=== PATIENT | male | born 1990 ===

== ENCOUNTER 2025-02-14 22:57 | Inpatient (IN) | payer MEDICARE, SELFPAY ==
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
--- OUTSIDE RECORDS SUMMARY | 2025-01-12 06:00 | XMS_ITS | Continuity of Care Document ---
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 Name Role Phone Souleymane Leonard MD Unavailable Unavailabl e Procedures Procedure Date OFFICE/OUTPATIENT VISIT, [facility] Advance Directives Directive Yes / No Effective Date File Name No Information Encounters Encounter Description Practice Location Reason(s) For Visit Diagnoses Date Provider Providers Copied on Encounter OFFICE/OUTPA TIENT VISIT, [facility], [address] [place], [place], [id number] , [place] tel:[phone] [facility] Neck Pain (chief complaint) CervicalgiaInjury of cervical spinal cord, sequelaLong term (current) use of opiate analgesic Aisha Comer. [address], [address], [place], [place], [address], [place]. tel:[phone] Referring Provider: Esteban Neri, [address] [place], [address] . tel:[phone] Family History Family Member Type Diagnosis Age At Onset No Information Payers Payer name Insurance type Covered republican ID Efrem weiss(s) [facility] [id number] Social History Type Description Quantity Date Captured [...] Of Treatment Date Type Action Status Goal Medication Reconciliation. D ue on due Goal Weight. Due on d ue Goal PHQ-9. Due on du e Goal Review Allergy List. Due on due Goal Unhealthy drug use screening . Due on due Goal Tobacco Use. Due on due Goal Update Social History. Due o n due Goal Tobacco screening. Due on due Goal Height. Due on d ue Goal Hepatitis C screening. Due o n due History Of Present Illness Encounter Date [...] transitional care and is currently living a [facility]. He able to perform some ADLs independently, [...] Has completed extensive PT and rehab at [facility]. Last MRI completed in 08/2023 at [facility]. Previously tried buprenorphine (GI upset, nausea, vomiting). [...] Injury of cervical spinal cord, sequela assessment [facility] (current) use of opiat e analgesic impression [...] substance abuse history and outside records at [facility], reveal multiple UDT that have been positive for methamphetamines. Given this history, [facility] would not be able to manage chronic opiate prescribing for him. impression As above impression This is my first stas luation of the patient, referred by Mery Morgan CNP from [facility]. Previous clinic notes and records from [facility] reviewed. Reynold is a 34 y/o male [...] Has completed extensive PT and rehab at [facility]. Last MRI completed in 08/2023 at [facility]. Previously tried buprenorphine (GI upset, nausea, vomiting). Currently managed on oxycodone 5mg 4/day, pregabalin 300mg BID, baclofen 20mg TID, methocarbamol, and Tylenol. Oxycodone had been managed by [facility] since he was hospitalized. However, he states today that he has been advised to find a pain clinic to manage this medication. Mental Status Date Cognitive Assessment Orientation - [place] ed to time, place, person, situation. Patient Care Teams Name Effective Dates (start - stop) Status Members No Information
[2025-02-14 23:09] VITALS: PULSE 72; RESP 16; TEMP 37.1; O2SAT 99
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
[2025-02-14 23:37] VITALS: BP 176/110; RESP 21; O2SAT 97
[2025-02-15] VITALS (36 sets, daily range): BP systolic 113–141; BP diastolic 78–129; PULSE 67–125; RESP 14–22; TEMP 36.3–37; O2SAT 90–97
--- NOTE | 2025-02-15 01:29 | CRLHL7_ITS ---
For Patients: As a result of the Cures Act, medical imaging exams and procedure reports are released immediately into your electronic medical record. You may view this report before your referring provider. If you have questions, please contact your health care provider. INDICATION: Cough, diaphoresis TECHNIQUE: Chest radiograph 1 view COMPARISON: None FINDINGS: Mediastinum: The central pulmonary arteries are near the upper limits of normal in size. The cardiac silhouette is mildly enlarged but may be accentuated by the portable technique. Lung: Both lungs are unremarkable in appearance. No sign of pleural effusion seen. No pneumothorax is identified. Bone and Soft tissue: Moderate dextroscoliosis of the thoracic spine is present. Fusion of the cervicothoracic junction is partially visualized IMPRESSION: 1. The cardiac silhouette is mildly enlarged but may be accentuated by the portable technique. Dictated by Leonardo Camacho MD @ 02/15/2025 1:49:55 AM Dictated by: Leonardo Camacho MD @ 02/15/2025 01:50:00 (Electronically Signed)
[2025-02-15 01:38] LABS: Appearance Urine Cloudy (Clear)
[2025-02-15 01:57] LABS: Lactate* 1.0 mmol/L (0.5-1.9)
[2025-02-15 02:04] LABS: Hematocrit* 39.4 % (37.0-53.0); Hemoglobin* 12.9 gm/dL (13.5-17.5); Immature Granulocytes Pct Auto 0.3 %; Mean Corpuscular HGB Conc 33 gm/dL (32-36); Mean Corpuscular Hemoglobin 29 pg (26-34); Mean Corpuscular Volume 89 fL (80-100); RDW Coefficient of Variation % 15.9 % (11.5-15.5); Red Blood Count* 4.45 m/uL (4.30-5.90); White Blood Count* 16.15 K/uL (4.50-11.00)
[2025-02-15 02:10] LABS: Immature Granulocytes Abs Auto 0.00 K/uL (0.00-0.30); Lymphocytes Absolute Auto 1.50 K/uL (0.90-2.90); Slide Review Reflex No
[2025-02-15 02:17] LABS: Chloride* 102 mmol/L (96-114); Potassium* 3.5 mmol/L (3.6-5.1); Sodium* 136 mmol/L (135-149)
[2025-02-15 02:20] LABS: Anion Gap 16 mEq/L (7-15); Carbon Dioxide* 18 mmol/L (20-32)
[2025-02-15 02:21] LABS: Blood Urea Nitrogen* 13 mg/dL (5-24); Calcium* 9.0 mg/dL (8.4-10.6); Creatinine* 0.7 mg/dL (0.5-1.5); Estimated Glomerular Filt Rate 124 ml/min; Glucose* 88 mg/dL (60-115)
[2025-02-15 02:22] LABS: Cannabinoid Screen Urine Negative (Negative); Methamphetamines Screen Urine POSITIVE (Negative); Tricyclic Antidepressant Urine Negative (Negative)
[2025-02-15] MEDS: LACTATED RINGERS 1000 ML 1,000 ML IV (03:18)
[2025-02-15] MEDS: cefTRIAXone 2 GM in 0.9 % SODIUM CHLORIDE Mini-bag 100 ML IVPB (03:18)
[2025-02-15 04:05] LABS: PCR FLU A Negative PCR FLU A (Negative); PCR FLU B Negative PCR FLU B (Negative); PCR RSV Negative PCR RSV (Negative); SARS PCR* Negative SARS-CoV-2 (Negative)
--- NOTE | 2025-02-15 05:30 | CRLHL7_ITS ---
For Patients: As a result of the Cures Act, medical imaging exams and procedure reports are released immediately into your electronic medical record. You may view this report before your referring provider. If you have questions, please contact your health care provider. INDICATION: Change in mental status COMPARISON: None. TECHNIQUE: CT of the brain / head without intravenous contrast. Multiplanar axial, coronal, and sagittal reformats were reconstructed. FINDINGS: No intracranial hemorrhage. There is a linear hypodense tract with some minimal intraparenchymal calcifications in the right frontal lobe. Overlying calvarial irregularity and scalp scarring. The appearance is consistent with a prior EVD or [employer] shunt site. No acute or subacute cortically based infarct. No cerebral edema. No mass or mass effect. Normal ventricles. No skull fractures. No worrisome focal bone lesion. Posterior cervical fusion hardware is partially in the field of view at C2. IMPRESSION: Minimal sequela of a prior right frontal EVD or [employer] shunt. No acute appearing findings. Please note that all CT scans at this facility use dose modulation, iterative reconstruction, and/or weight-based dosing when appropriate to reduce radiation dose to as low as reasonably achievable. Dictated by Alessia Ames MD @ 02/15/2025 6:11:49 AM (Electronically Signed)
[2025-02-15] MEDS: 0.9 % SODIUM CHLORIDE 500 ML 500 ML IV (06:00)
--- NOTE | 2025-02-15 06:05 | W.PM.TELEH&P ---
Telehealth- H&P: HPI History of Present Illness Date Seen: 02/15/25 Chief complaint: UTI Narrative: Reynold Davis is seen as an Interactive Telehealth visit. 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 Patient expressed wishes to not return to his nursing home and was discharged to his father's home via EMS. And route he told EMS that he does not have equipment to self cath and presented to a nearby hospital for further evaluation at that time. Patient at the time is awake, able to provide some history however he is also agitated and hallucinating which is new. Most history is obtained through ER provider and documentation. It appears that patient was very diaphoretic in the emergency department. He was cathed 500 cc fluid initially in the emergency department. He had another 400 cc by the time he arrived to the floor. He is otherwise denying any fever, chills, chest pain, abdominal pain, shortness of breath or difficulty breathing. There was also some concern about patient's behavior including comments to end his life and also caring guns and tools which is unusual for him. Patient was noted to be hallucinating by nursing staff at the time of the admission. He was somewhat agitated however easily redirected. He was also diaphoretic. He has no fevers. He is otherwise awake. He does admit to using methamphetamine. When asked how and when he says few days ago and also says it is not relevant. He does drink hot liquids 2-3 drinks 2-3 times in a week. Workup in the emergency department showed white count of 16.15, hemoglobin 12.9, hematocrit 39.4, platelets 293. Sodium 136, potassium 3.5, chloride 102, bicarb 18, anion gap 16, BUN 13, creatinine 0.7, GFR 124. CRP 31.9. UA positive for 4+ ketones, positive nitrites, trace leukocyte Estrace, WBC 10-25. Urine drug screen came back positive for amphetamines. Respiratory panel was negative for COVID, influenza A or B or RSV. Chest x-ray showed cardiac silhouette mildly enlarged but may be accentuated by portable techniques. CT head showed minimal sequela of the prior right frontal EVD and PROJECT OFFICER shunt. No acute appearing findings. In the emergency department he was given ceftriaxone [address] [facility] Medical History H/O quadriplegia ?Z86.69 - Personal history of other diseases of the nervous system and sense organs (ICD-10) Social History Smoking Status: Never smoker How often do you have a drink containing alcohol: never AUDIT-C Alcohol total score: 0 Non-prescribed substance use: denies use Meds Home Medications and Allergies Home Medications ?Medication ?Instructions ?Recorded ?Confirmed ?Type baclofen .ROUTE 02/15/25 History buspirone .ROUTE 02/15/25 History doxepin .ROUTE 02/15/25 History enoxaparin subcut 02/15/25 History melatonin PO 02/15/25 History midodrine .ROUTE 02/15/25 History nitroglycerin PO 02/15/25 History ondansetron .ROUTE 02/15/25 History pregabalin .ROUTE 02/15/25 History senna PO 02/15/25 History sertraline .ROUTE 02/15/25 History Allergies Allergy/AdvReac Type Severity Reaction Status Date / Time buprenorphine AdvReac Verified 02/15/25 03:04 lactase AdvReac Verified 02/15/25 03:04 shellfish derived AdvReac Verified 02/15/25 03:04 sulfamethoxazole (From AdvReac Verified 02/15/25 03:04 Bactrim) trimethoprim (From Bactrim) AdvReac Verified 02/15/25 03:04 Exam Narrative Exam Narrative: Physical Exam GENERAL: ?vital signs reviewed, diaphoretic, tachypneic. ABle to talk in full sentences. HEENT: pupils are dilated and reactive to light NECK: Supple HEART: Regular rate and rhythm without any rubs, murmurs, or gallops. LUNGS: Clear to auscultation bilaterally with good air movement throughout ABDOMEN: Observation from nurse assisted exam, abdomen appears soft, nontender, and nondistended with Positive bowel sounds noted. EXTREMITIES: Per RN pt able to move both arms spontaneously. unable to move legs due to his h/o incomplete quadreplegia. SKIN:? Observed warm and dry with color normal Const Vital Signs, click to edit/add: Vital Signs - 24 hr 02/14/25 23:09 02/14/25 23:37 02/15/25 02:28 Temperature 98.8 F 98.6 F Pulse Rate 99 Pulse Rate [Pulse Oximeter] 72 Respiratory Rate 16 21 18 Blood Pressure 133/90 H Blood Pressure [Left Arm] Blood Pressure [Right Upper Arm] 176/110 H Pulse Oximetry 99 97 94 Oxygen Delivery Method Room Air Room Air 02/15/25 02:31 02/15/25 02:32 02/15/25 02:45 Temperature Pulse Rate 91 107 H Pulse Rate [Pulse Oximeter] Respiratory Rate Blood Pressure 136/92 H Blood Pressure [Left Arm] Blood Pressure [Right Upper Arm] Pulse Oximetry 97 94 96 Oxygen Delivery Method 02/15/25 03:00 02/15/25 03:02 02/15/25 03:03 Temperature Pulse Rate 92 92 94 Pulse Rate [Pulse Oximeter] Respiratory Rate 16 Blood Pressure 141/99 H Blood Pressure [Left Arm] Blood Pressure [Right Upper Arm] Pulse Oximetry 95 94 94 Oxygen Delivery Method 02/15/25 03:15 02/15/25 05:34 Temperature 98.1 F Pulse Rate 92 Pulse Rate [Pulse Oximeter] 84 Respiratory Rate 18 Blood Pressure Blood Pressure [Left Arm] 133/101 H Blood Pressure [Right Upper Arm] Pulse Oximetry 95 95 Oxygen Delivery Method Room Air Hospitalist - H&P: Result Labs Labs: Short CBC 02/15/25 Range/Units 01:51 WBC 16.15 H (4.50-11.00) K/uL Hgb 12.9 L (13.5-17.5) gm/dL Hct 39.4 (37.0-53.0) % Plt Count 293 (140-440) K/uL BMP 02/15/25 01:51 Sodium 136 Potassium 3.5 L Chloride 102 Carbon Dioxide 18 L BUN 13 Creatinine 0.7 Glucose 88 Calcium 9.0 Urine 02/15/25 Range/Units 00:00 Urine Color Yellow (Yellow) Urine Appearance Cloudy A (Clear) Urine pH 6.0 (5.0-8.5) Ur Specific [place] 1.020 (1.000-1.030) Urine Protein 1+ A (Negative) Urine Glucose (UA) Negative (Negative) Assessment and Plan Assessment and plan (1) Methamphetamine abuse: Status: Acute (2) UTI (urinary tract infection): Status: Acute (3) Urinary retention: Status: Acute (4) Acute incomplete quadriplegia: Status: Acute (5) Sepsis: Status: Acute Plan Patient is a 34-year-old male with past medical history significant for incomplete quadriplegia who currently lives at nursing home, who initially presented to [facility] for back pain, eventually discharged without any significant findings as per patient, was en route to his father's house via EMS at discharge when he realized he did not have self cath equipment and presented to emergency department. In the ER he was found to be tachycardic, diaphoretic, lab work showed leukocytosis with white count of 16, UA was positive, he was found to have urinary retention with catheter 500 cc, and later 400 cc, urine drug screen showed methamphetamine. He reports using methamphetamine a few days ago however says it is irrelevant. Patient has been having hallucinations, has also made comments that he wants to end it all and has been reportedly may have been carrying unusual weapons (unclear at this point) # Acute Intoxication # MEthamphetamine use # Alcohol use disorder # Incomplete Quadreplegia with neurogenic bladder # UTI/Sepsis Plan - CT head is checked due to patient's change in mental status and was negative. - lactate, VBG pending - cont cardiac monitoring - IV ativan prn for agitation and withdrawal symptoms - cont with Ceftriaxone 2 g. f/u urine cultures. Broaden coverage if pt spikes fever or signs of sepsis. - paris catheter placed now # Chronic pain/muscle spasms - pt is on baclofen, lyrica, opoids oxy 5 mg 4 times daily prn. These meds were resumed. # DVT proph - lovenox Telehealth: Statement Statement Telehealth Visit: Today's History and Physical is provided via interactive telehealth by Lynn Greco MD.? Patient is located at [facility].? Provider is located at [facility].? Nursing staff assisted with the patient's exam. The visit being done today meets criteria for a telehealth visit and the patient or patient?s parent/guardian is aware the visit is a telehealth visit. Camera Start Time: 05:07 Camera End Time: 05:21
--- NOTE | 2025-02-15 08:24 | PC.NURSE ---
Pt arrived to the unit @ [address]. [address]. Patent and draining. Bedbound, quadriplegic. Fluids runnings @ 100 ml/hr. [facility] report filled out due to UA results. Pt is talking to himself in the room and reporting to field underwriter that Someone is coming to kill me, they already killed my dad and grandma. Lock my door and move my bed. Fixture Designer used therapeutic communication to allow reorientation and safety. Pt refused lab draw. Fixture Designer observed patient during CT scan. Pt tolerated well. Drinking water at bedside. IV is to the RLE. Report given to Lonnie SON. Report given to LUÍS Cardenas and LUÍS Rene. Call light within reach. Bed alarm in place.
[2025-02-15] MEDS: DOXYCYCLINE HYCLATE 100 MG in 0.9 % SODIUM CHLORIDE Mini-bag 100 ML IVPB ×2 (09:05→20:34)
[2025-02-15 09:09] LABS: HCO3 VBG 18 mmol/L (21-28); PCO2 VBG 30 mmHG (40-50); PO2 VBG 136.0 mmHG (25-47); pH VBG 7.394 (7.32-7.43)
[2025-02-15 09:11] LABS: Hematocrit* 36.0 % (37.0-53.0); Hemoglobin* 12.0 gm/dL (13.5-17.5); Immature Granulocytes Pct Auto 0.3 %; Lactate Sepsis w/Reflex* 0.9 mmol/L (0.5-1.9); Mean Corpuscular HGB Conc 33 gm/dL (32-36); Mean Corpuscular Hemoglobin 29 pg (26-34); Mean Corpuscular Volume 88 fL (80-100); RDW Coefficient of Variation % 16.0 % (11.5-15.5); Red Blood Count* 4.09 m/uL (4.30-5.90); White Blood Count* 14.48 K/uL (4.50-11.00)
[2025-02-15 09:16] LABS: Chloride* 104 mmol/L (96-114); Potassium* 3.5 mmol/L (3.6-5.1); Sodium* 137 mmol/L (135-149)
[2025-02-15 09:16] LABS: Immature Granulocytes Abs Auto 0.00 K/uL (0.00-0.30); Lymphocytes Absolute Auto 1.60 K/uL (0.90-2.90); Slide Review Reflex No
[2025-02-15 09:19] LABS: Anion Gap 15 mEq/L (7-15); Blood Urea Nitrogen* 10 mg/dL (5-24); Calcium* 8.3 mg/dL (8.4-10.6); Carbon Dioxide* 18 mmol/L (20-32); Creatinine* 0.6 mg/dL (0.5-1.5); Estimated Glomerular Filt Rate 130 ml/min; Glucose* 86 mg/dL (60-115)
[2025-02-15 09:36] LABS: Procalcitonin* 0.62 ng/mL (<0.50)
[2025-02-15] MEDS: BACLOFEN 10 MG TABLET 20 MG PO ×2 (10:59→20:33)
[2025-02-15] MEDS: PREGABALIN 50 MG CAPSULE 150 MG PO (11:00)
--- NOTE | 2025-02-15 11:53 | W.PC.NUTR.NO ---
Nutrition Progress Note Progress Note Progress Note: RDN with nutrition screen related to positive skin risk score. Patient admitted for UTI and pneumonia, and was hallucinating on admit. He admitted to using methamphetamine. 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 No weight history at this time. Current weight 69.989 kg. No height recorded. Current diet is clear liquids. No interventions at this time due to current status and diet order. RDN will continue to monitor and follow-up prn.
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
[2025-02-15] MEDS: POTASSIUM CHLORIDE 10 MEQ/100 ML PIGGYBACK 100 MEQ IVPB ×3 (11:54→16:59)
[2025-02-15] MEDS: SODIUM CHLORIDE 0.9 % (FLUSH) 10 ML SYRINGE 5 ML IVF ×3 (12:17→20:34)
--- NOTE | 2025-02-15 14:31 | PC.NURSE ---
Physical Assessment findings - RN noted the following: reddened areas and blisters on top of L foot, as well as reddened area on L heel. Reddened area on top of R foot, scabs on lateral edge of R foot, and reddened area on R heel. Reddened area on coccyx. Circular skin magdy on R shoulder. RN also noted pt to have 4x4 white adherent dressing over gauze on middle of pt back. When asked if the pt had knowledge of what the dressing was covering, the pt replied open the magic box and find out. RN was able to lift a corner of the dressing and observed what appeared to be a wound. The dressing was not fully removed by RN. Dressing re-secured and MD made aware. See photos attached coccyx L foot side view L foot top view L heel R foot top view R foot side view R heel Shoulder
[2025-02-15 14:54] LABS: Chloride* 108 mmol/L (96-114); Sodium* 139 mmol/L (135-149)
[2025-02-15 14:55] LABS: Potassium* 3.4 mmol/L (3.6-5.1)
[2025-02-15 14:57] LABS: Blood Urea Nitrogen* 8 mg/dL (5-24); Creatinine* 0.6 mg/dL (0.5-1.5); Estimated Glomerular Filt Rate 130 ml/min
[2025-02-15 14:58] LABS: Anion Gap 12 mEq/L (7-15); Calcium* 8.4 mg/dL (8.4-10.6); Carbon Dioxide* 19 mmol/L (20-32); Glucose* 84 mg/dL (60-115)
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
--- NOTE | 2025-02-15 19:45 | PC.NURSE ---
End of shift [id number] ? Pt alert, oriented to self only. Able to answer direct questions, however RN noted pt interacting and responding to auditory and visual hallucinations. Pt observed to get agitated and tearful at times when interacting with hallucinations. Pt observed to shake intermittently, when asked if he was cold the pt responded ?no?. Episodes of elevated HR noted frequently during shift, MD aware. RN attempted to reposition and offload pt as tolerated. Pt frequently refused. RN documented areas of skin breakdown on pt body, see additional note. Tolerating RA and clear liquid diet per order. Pt denied pain, SOB, n/v. Kruse catheter intact and observed to be patent and draining. Pt appears to be resting comfortably in bed at end of shift.
[2025-02-15] MEDS: PREGABALIN 75 MG CAPSULE 150 MG PO (20:36)
[2025-02-15] MEDS: ENOXAPARIN 40 MG/0.4 ML INJ SUBCUT (20:42)
[2025-02-15] MEDS: OLANZapine 5 MG/ML inj IVP (21:07)
--- NOTE | 2025-02-15 23:48 | PC.NURSE ---
194: MD in room with RN and Patient. Removed the dressing on middle of patients back. Underneath was a [place] centimeter by centimeter erythema with midline breakdown (per MD). Per MD covered with Mepilex.
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
[2025-02-16] VITALS (14 sets, daily range): BP systolic 118–141; BP diastolic 84–106; PULSE 70–103; RESP 14–16; TEMP 36.3–36.9; O2SAT 90–97
[2025-02-16] MEDS: NICOTINE 21 MG PATCH 1 PATCH TRANSDERMA (03:09)
[2025-02-16] MEDS: cefTRIAXone 2 GM in 0.9 % SODIUM CHLORIDE Mini-bag 100 ML IVPB (03:09)
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
[2025-02-16 07:10] LABS: Hematocrit* 35.6 % (37.0-53.0); Hemoglobin* 11.7 gm/dL (13.5-17.5); Immature Granulocytes Abs Auto 0.04 K/uL (0.00-0.30); Immature Granulocytes Pct Auto 0.5 %; Mean Corpuscular HGB Conc 33 gm/dL (32-36); Mean Corpuscular Hemoglobin 29 pg (26-34); Mean Corpuscular Volume 88 fL (80-100); RDW Coefficient of Variation % 16.0 % (11.5-15.5); Red Blood Count* 4.05 m/uL (4.30-5.90); White Blood Count* 8.23 K/uL (4.50-11.00)
[2025-02-16 07:24] LABS: Lymphocytes Absolute Auto 1.20 K/uL (0.90-2.90); Slide Review Reflex No
[2025-02-16 07:27] LABS: Albumin* 3.0 g/dL (3.3-5.0); Chloride* 110 mmol/L (96-114); Potassium* 3.4 mmol/L (3.6-5.1); Sodium* 141 mmol/L (135-149)
[2025-02-16 07:30] LABS: Alanine Aminotransferase* 52 U/L (4-50); Alkaline Phosphatase* 127 U/L (40-150); Anion Gap 9 mEq/L (7-15); Aspartate Amino Transferase* 21 U/L (12-35); Bilirubin Direct* 0.6 mg/dL (0.0-0.5); Bilirubin Total* 0.7 mg/dL (0.1-1.5); Blood Urea Nitrogen* 6 mg/dL (5-24); Carbon Dioxide* 22 mmol/L (20-32); Creatinine* 0.5 mg/dL (0.5-1.5); Estimated Glomerular Filt Rate 137 ml/min; Total Protein* 5.9 g/dL (6.0-8.3)
[2025-02-16 07:31] LABS: Calcium* 8.8 mg/dL (8.4-10.6); Glucose* 82 mg/dL (60-115)
[2025-02-16] MEDS: DOXYCYCLINE HYCLATE 100 MG in 0.9 % SODIUM CHLORIDE Mini-bag 100 ML IVPB ×2 (08:25→20:53)
[2025-02-16 08:26] LABS: Gamma Glutamyl Transpeptidase* 88 U/L (8-55)
[2025-02-16] MEDS: PREGABALIN 75 MG CAPSULE 150 MG PO ×2 (08:28→20:51)
[2025-02-16] MEDS: BACLOFEN 10 MG TABLET 20 MG PO ×2 (08:29→20:51)
[2025-02-16] MEDS: CLOTRIMAZOLE 1 % CREAM 1 APPLIC TOPICAL ×2 (08:56→20:59)
--- NOTE | 2025-02-16 09:31 | REH.OT ---
OT: Order received, chart reviewed, per MD in team rounds OT/PT to hold today due to medical status. Will check status tomorrow.
--- NOTE | 2025-02-16 10:22 | CRLHL7_ITS ---
For Patients: As a result of the Century Cures Act, medical imaging exams and procedure reports are released immediately into your electronic medical record. You may view this report before your referring provider. If you have questions, please contact your health care provider. INDICATION: Pulmonary embolism suspected, high probability. TECHNIQUE: CT chest PE was acquired with 100 cc Omnipaque 350 IV contrast. Coronal and MIP reconstructions were performed. COMPARISON: None. FINDINGS: Evaluation for pulmonary embolism is limited by respiratory motion. No pulmonary embolism is seen given limitations. The aorta not aneurysmal. Respiratory motion again noted. Indeterminate consolidation and patchy ground-glass within the posterior right upper lobe. This likely represents pneumonia. Scattered clustered nodules are noted adjacent as well. Left basilar consolidation is favored to represent atelectasis or scarring. Minimal right basilar atelectasis. No significant effusion. Subcentimeter mediastinal lymph nodes. These are likely reactive. No definite hilar lymphadenopathy. The heart is prominent. A small pericardial effusion is present. No axillary lymphadenopathy or chest wall mass. Images of the upper abdomen are unremarkable. Bone windows demonstrate thoracic instrumentation. No fracture. IMPRESSION: Examination is limited by respiratory motion. 1. Indeterminate dependent right upper lobe consolidation with adjacent nodularity and ground-glass. This likely represents pneumonia. Recommend follow-up chest CT in 2 months. 2. Indeterminate left basilar consolidation, likely atelectasis or scarring. Recommend close attention on follow-up. 3. No definite pulmonary embolism is seen. Please note that all CT scans at this facility use dose modulation, iterative reconstruction, and/or weight-based dosing when appropriate to reduce radiation dose to as low as reasonably achievable. Dictated by Jermani Abraham MD @ 02/16/2025 12:13:40 PM (Electronically Signed)
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
--- NOTE | 2025-02-16 10:46 | REH.PT ---
Patient on hold for PT/OT eval per nursing. Will recheck in AM
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
[2025-02-16] MEDS: POTASSIUM BICARB 25 MEQ EFFERVESCENT TAB PO (16:35)
--- NOTE | 2025-02-16 19:01 | PC.NURSE ---
Pt?s mentation fluctuates between being alert & oriented, and having intermittent auditory and visual hallucinations. Pt. cooperative with cares and assessments the majority of the time; occasionally refuses to answer questions, take medication, etc. Wounds assessed and dressings changed by Dr. Trevino. Pt. simultaneously?desats to upper 70s and becomes tachycardic up to 140s while resting, and must be stimulated and aroused to correct O2 sats and HR back to normal range - Dr. Fleming notified, no new orders.?
[2025-02-16] MEDS: ENOXAPARIN 40 MG/0.4 ML INJ SUBCUT (20:52)
[2025-02-17] VITALS (7 sets, daily range): BP systolic 107–124; BP diastolic 71–102; PULSE 62–86; RESP 16; TEMP 35.7–36.4; O2SAT 95–96
[2025-02-17] MEDS: cefTRIAXone 2 GM in 0.9 % SODIUM CHLORIDE Mini-bag 100 ML IVPB (03:05)
--- NOTE | 2025-02-17 07:32 | PC.NURSE ---
Shift Note: Pt alert oriented and able to verbalize needs. VS WNL. Afebrile. Pt did require a full linen change d/t excess perspiration. Kruse is patent and draining. Denies pain. T&R q2h, encouraging TCDB and IS. Nicotine patch removed from pt's left shoulder overnight and he declined application of a new patch. Tele= NSR.
[2025-02-17] MEDS: DOXYCYCLINE HYCLATE 100 MG in 0.9 % SODIUM CHLORIDE Mini-bag 100 ML IVPB (09:16)
[2025-02-17] MEDS: PREGABALIN 75 MG CAPSULE 150 MG PO (09:18)
[2025-02-17] MEDS: BACLOFEN 10 MG TABLET 20 MG PO ×2 (09:20→14:02)
[2025-02-17] MEDS: CLOTRIMAZOLE 1 % CREAM 1 APPLIC TOPICAL (09:21)
[2025-02-17] MEDS: SENNOSIDES 1 TAB TABLET PO (09:22)
--- NOTE | 2025-02-17 11:33 | PC.SOCIAL ---
Addendum entered by NAI Mars 02/17/25 15:37: Discharge planning: After talking with the disciplinary care team on med/surg for this pt and finding out that he has not had a bowel movement since before his admission to the hospital and he is refusing to participate in therapies until he completes his bowel regimen. Pt requires a special commode due to his quadrapalegia that the hospital does not have in stock. Pt's sister and father plan to drive to the pt's correction in [place] this afternoon/evening to chart picker the pt's commode and his other medical equipment. Pt's sister and father will then bring the commode to the hospital and participate in teaching with pt's nursing staff for the pt's bowel regimen. family preservation worker will plan to check-in with the pt's sister in the morning for further discharge planning. Social work to follow-up as needed. Original Note: Discharge planning: family preservation worker met with the pt this morning who shares that he does not want to go back to the correction where he was living in [place] because he said they do not take care of him there. When this social services coordinator asked him to elaborate on the care at the correction he said that they do not care for his wounds properly. Pt said he plans to go to his Dad's apartment or his sister's trailer(both live in [place]) at discharge from the hospital. Pt stated that he has a sliding board that he uses for transfers and a stephanie lift, but he really doesn't use the stephanie lift very often because he does not care for it. family preservation worker gave this information to the physical therapist that is scheduled to meet with him today. family preservation worker shared with the pt that this worker was going to call the pt's father, dependency case manager and the brownfield redevelopment site manager of his correction to start coordinating some of the discharge planning in order for the pt to be ready for discharge back to either his father or sister's house. family preservation worker spoke to pt's father, Mitul, via phone this morning who stated that the pt is still wanting to go to either his Dad's apartment or his sister's house. Pt's Dad said that the pt would most likely be going to the pt's sister's house due to space that the pt will need for his medical equipment and supplies. Pt's father states that pt's sister does have a truck to haul stuff, but he is not sure if she has gas money to go back and forth from [place]. Pt's father gave this worker pt's sister's name and contact information and stated that she plans to come up the hospital today and is hoping that she will be there by noon. Pt's sister's name is Shoshana Vargas and her phone number is #[phone]. family preservation worker spoke to Shoshana and she said that she could come up to the hospital this afternoon to find out about the pt's care and needs. Shoshana did clarify that the pt will actually be living at her mother's house in [facility], as Shoshana is staying with her right now. Social work to follow-up as needed.
[2025-02-17 12:59] LABS: Potassium* 3.3 mmol/L (3.6-5.1)
--- NOTE | 2025-02-17 13:31 | PC.NURSE ---
Patient was approached at 13:20 pm to discuss options for enema administration. Patient opened eyes, looked up, shook head from side to side, closed eyes and did not respond to attempts to communicate. Options were explained, patient turned his eyes side ways, closed them up and did not respond to any of my questioning.
--- NOTE | 2025-02-17 14:04 | W.PC.NUTR.HO ---
Hospital Nutrition Assessment Patient Data Patient Gender: Male Patient Age: 34 Weight: 70.76 kg Activity/Stress Factors Injury Factor/Activity Factor Value: 1.1 Total Energy Requirements Kcal requirements (current wt): 1600 (22 kcals per kg) Protein Need (current wt): 1.1 (for stage I pressure ulcers) Total Protein (current wt): 77.836 Fluid Need (current wt): 30 Total Fluid (current wt): 2122.800 Nutrition Assessment Diet Order: Regular Food Modified for Dysphagia: 7-Regular Liquid Modified for Dysphagia: 0-Thin Are you following a diet prescribed by a doctor: No Are you following a special diet: No Allergies: shellfish Appetite Prior to Admission: Poor Appetite and Intake: intakes increased since admit, 100% x2 Hx Appetite Changes: Yes (Poor; was hallucinating with psychosis on admit, now has resolved) Hx Weight Loss: No (Unknown) Hx Weight Gain: No Nausea: No Vomiting: No Diarrhea: No Hx Constipation: No Chewing Difficulty: No Swallowing Difficulty: No Pressure Ulcer: Yes Comments: stage I midback decubitus ulcer stage I coccygeal decubitus ulcer Ecchymosis associated with the blister over the left dorsal foot (no open wound) Diagnosis/Symptom or Procedure: UTI, sepsis Clinical History: 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 Current Living Situation: From Assisted. Was attempting to live with father when discharged from [facility], however he went to [facility] due to not having proper equipment to self cath. Medications Medications: reviewed. Lab Results Lab Results: reviewed. Assessment/Plan PES Statement: Inadequate oral intakes as evidenced by diet order of clear liquids from admit until 02/16 as evidenced by no oral intakes. Nutritional Assessment Summary: RDN with nutrition screen related to positive skin risk score and wounds. Patient's diet order was advanced to Regular from clear liquids 02/16. Meal intakes since then have been adequate at 100%. Pressure ulcers are only stage I. Increased protein needs not indicated at this time. Patient's intakes have been adequate since diet advancement. No weight history to assess. Additional interventions not warranted at this time. Discharge Plan-Living Situation: TBD Goals: Adequate oral intakes of 50%+. No s/s dehydration Plan/Recommendation: Diet order per MD order. RDN will continue to monitor and follow-up as appropriate.
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
[2025-02-17] MEDS: POTASSIUM CHLORIDE 10 MEQ CAPSULE ER 20 MEQ PO (17:51)
[2025-02-17] MEDS: CEFPODOXIME PROXETIL 200 MG TABLET PO (17:52)
--- NOTE | 2025-02-17 18:31 | PC.NURSE ---
End of Shift Note CCU1 Patient has been VSS. Afebrile. Cooperation has been intermittent throughout the shift. He has declined repositioning. Patient shakes his head from side to side and declines to answer questions at times. Patient refused to allow indwelling catheter to be discontinued this evening as per MD orders. He also declined some of his medications. Call light within reach.
[2025-02-18] VITALS (10 sets, daily range): BP systolic 107–159; BP diastolic 61–125; PULSE 56–101; RESP 16–20; TEMP 35.9–36.2; O2SAT 96–98
--- NOTE | 2025-02-18 07:02 | PC.NURSE ---
Shift note ([id number]): Patient allowed staff to?turn and reposition him once this shift. Blood pressures 120/83, 136/105 and 148/105. Afebrile. Denied pain. Left?arm shaking at times. Episodes of perspiring. Patient awakened at approximately 0625 and was yelling. He reported that he thought someone was poking him. Good urine output this shift.?
[2025-02-18 07:28] LABS: Chloride* 111 mmol/L (96-114); Potassium* 3.6 mmol/L (3.6-5.1); Sodium* 143 mmol/L (135-149)
[2025-02-18 07:31] LABS: Anion Gap 6 mEq/L (7-15); Blood Urea Nitrogen* 8 mg/dL (5-24); Carbon Dioxide* 26 mmol/L (20-32); Creatinine* 0.5 mg/dL (0.5-1.5); Estimated Glomerular Filt Rate 137 ml/min
[2025-02-18 07:32] LABS: Calcium* 8.7 mg/dL (8.4-10.6); Glucose* 102 mg/dL (60-115)
--- NOTE | 2025-02-18 09:37 | PC.NURSE ---
Attempted to give the patient's AM medications but patient refused. Patient looked up, shook head from side to side and said no. Attempted to educate patient on the use and benefits of his medications but patient was unreceptive. Notified .
--- NOTE | 2025-02-18 09:54 | PC.NURSE ---
Patient refused to be repositioned. Unable to assess sacral wound as patient refused to allow me to turn him.
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
[2025-02-18] MEDS: CEFPODOXIME PROXETIL 200 MG TABLET PO ×2 (11:20→18:38)
[2025-02-18] MEDS: BUSPIRONE 10 MG TABLET 7.5 MG PO ×2 (11:20→18:37)
[2025-02-18] MEDS: PREGABALIN 75 MG CAPSULE 150 MG PO (11:22)
[2025-02-18] MEDS: POTASSIUM CHLORIDE 10 MEQ CAPSULE ER 20 MEQ PO ×2 (11:22→18:39)
[2025-02-18] MEDS: MIDODRINE HCL 5 MG TABLET 2.5 MG PO ×2 (11:23→18:37)
[2025-02-18] MEDS: DOXYCYCLINE HYCLATE 100 MG PO (11:23)
[2025-02-18] MEDS: TOLTERODINE TARTRATE 2 MG CAP.ER.24H PO (11:23)
[2025-02-18] MEDS: SERTRALINE 100 MG TABLET PO (11:23)
[2025-02-18] MEDS: BACLOFEN 10 MG TABLET 20 MG PO ×2 (11:25→18:35)
--- NOTE | 2025-02-18 13:45 | PC.NURSE ---
Addendum entered by Theresa Cutler RN 02/18/25 14:18: Education provided to family on how to empty folley catheter. Family verbalized understanding of care provided. Unable to provide further education due to PT/OT working with patient. When automatic typewriter inspector reproached to provide more education, family was no longer in the building. Unsure of family's return, no information was given. Patient continues to refuse personal cares, turn and reposition and vital signs. Education on importance with patient continuing to refuse. Original Note: Patient refused all AM medications. Patient changed his mind and requested medications to be given two hours after. Medications were administered at 11:23 am. Family visited and asked for education on patient's cares, but left within a couple of hours. Some education was given. Family left premises. Unsure of family's return. Unable to complete education until family is present, and patient is compliant. Patient is currently not compliant to cares.
--- NOTE | 2025-02-18 14:34 | PC.NURSE ---
End of Shift Note CCU1 Patient was uncooperative with cares, medications, education, vital, turn and repositioning throughout shift. VSS. Afebrile. A&Ox3. Family came for education, but left before education was completed. Unsure of family's return. No information given to typewriter assembler or nurses desk about possible return.Call light within reach.
--- NOTE | 2025-02-18 15:19 | PC.SOCIAL ---
Addendum entered by NAI Mars 02/18/25 16:02: Discharge planning: general production worker updated pt's immigration case manager Zoë Baca with the discharge plan. general production worker also provided pt's sister with Zoë's contact information. Social work to follow-up as needed. Original Note: Discharge planning: The plan will be for the pt to discharge from the hospital this evening to his sister's mother's house at [address] [place] [address] in [place]. general production worker spoke to the pt's sister this morning and she, the pt's father and the sister's mom were willing to come up to the hospital for teaching and education with nursing and PT/OT. When they arrived this worker met with them, as well, and they shared that they were able to get a lot of the pt's equipment/belongings/medical supplies from the residential in [place] yesterday, but that they were unable to get his power wheelchair because it was too heavy for just the pt's sister and father to lift into the back of the pt's sister's pick-up truck. Pt's father, sister and one of the sister's friends plan to go back to the residential this afternoon after the friend gets done with work around 2pm(leave [place] around 2pm) to get the power wheelchair, shower chair, pt's clothing and other personal items. Pt's sister said that they were able to get the pt's commode, bed, manual stephanie lift and many supplies yesterday; however, they did not get time to get the bed put together in the home last night or this morning, as they had to drop the pt's commode off at the hospital last night after they got back in [facility] and then they came to the hospital around 10am this morning for teaching/education on the pt's cares. The family was not able to stay at the hospital long enough to see the pt transfer well with his transfer board or with a stephanie lift(they needed to leave to set-up pt's bed and other items before needing to leave town at 2pm to get the pt's wheelchair), so hospital staff would like either the pt's sister or father to come to the hospital after they get back into [place] from getting pt's power wheelchair and other items today for more teaching with nursing staff on how to use the stephanie lift(pt is a stephanie lift right now due to his weakness from the UTI and Pneumonia and should not use his transfer board until he is feeling stronger) with the pt and paris catheter cares. The plan will be for the pt to take non-emergent EMS to his sister's mother's house and this should be covered by the pt's [facility] medical assistance health insurance. Per PT/OT they are recommending that the pt go to a TCU/SNF at discharge. This worker did check with the pt again this afternoon about where he wanted to go to at discharge from the hospital and the pt continues to state to this worker that he wants to go to either his sister's mother's house or his father's apartment in [place] and that he does not want to go back to his residential or a TCU/SNF. Social work to follow-up as needed.
--- NOTE | 2025-02-18 19:55 | PC.NURSE ---
Nursing Care Hours: [id number] Pt this shift calm and cooperative. Pt agreeable to VS, physical assessment and medication administration. Reports pain to back, pain med given PO prior to discharge. Pt requested enema for BM, assisted with bedpan. Kruse patent. Large fluid filled blister, closed, noted on lateral left foot under the heel pad. IV removed for discharge. Pt family with family friend who is reported to be a SEX CRIMES DETECTIVE arrived for education same time as EMS arrival. Public Address Systems Mechanic and staff assisted with teaching on stephanie use, wound dressing change, Kruse maintenance, and SS to report.
--- NOTE | 2025-02-19 15:58 | PC.APCO ---
Social work note: A MAARC report was made today for the pt due to his history of meth use. Report number #[id number]. Social work to follow-up as needed.
--- NOTE | 2025-02-19 17:40 | PC.NURSE ---
Have received a few phone calls today regarding this patient either from his sister or someone who is identify herself as his progressive care nurse. First call was about coming and picking up medication that was left behind and his commode chair. His sister came and roller picker both of these and then asked questions about how to use the chair again I should her how to use the brakes on the chair for safety. She was also concerned that they did not have any supplies at home for changing his dressing on his wounds. She was provided with 5 meplix dressings explained to her to reach out to his rn case mgr she should be able to help them get those supplies at home. Otherwise when she goes to roller picker his antibiotics from [facility] to see if they have those dressings there or look on [employer]. Then a couple hours later received a call that [facility] here in [place] did not take his insurance and they were transferring his prescriptions to a [facility] that does accept his insurance and there was an issue with getting one of his antibiotics filled. Called the [facility] that prescriptions were transferred to find out issue. The one prescription was covered by his insurance. spoke with our pharmacist and provider and gave orders for a prescription that was covered by his insurance. Then received another called as patient was need his enema and they didn't have sterlie lubricant. Explained to them to use ky jelly. Asked if they had any further questions they did not and said Thank you for the help
== END 2025-02-18 19:50 | disposition home or self-care (01) | DRG 775 ==
LOC: ED 02-15 01:08 → MEDSURG 02-15 19:56
PROVIDERS: Family Medicine; Admitting Provider Internal Medicine; Emergency Provider Family Medicine; Visit Provider Internal Medicine
DX: F15.151 Other stimulant abuse with stimulant-induced psychotic disorder with hallucinations (principal); T83.518A Infection and inflammatory reaction due to other urinary catheter, initial encounter; A41.9 Sepsis, unspecified organism; N39.0 Urinary tract infection, site not specified; J18.9 Pneumonia, unspecified organism; F10.10 Alcohol abuse, uncomplicated; G82.52 Quadriplegia, C1-C4 incomplete; L89.151 Pressure ulcer of sacral region, stage 1; N31.9 Neuromuscular dysfunction of bladder, unspecified; R33.9 Retention of urine, unspecified; E87.6 Hypokalemia; B96.1 Klebsiella pneumoniae [K. pneumoniae] as the cause of diseases classified elsewhere; F41.9 Anxiety disorder, unspecified; R23.8 Other skin changes; F32.1 Major depressive disorder, single episode, moderate; F43.10 Post-traumatic stress disorder, unspecified; F17.210 Nicotine dependence, cigarettes, uncomplicated
CPT/HCPCS: 36415; 51701; 70450; 71045; 71275; 80048; 80076; 80306; 81001; 82803; 82977; 83605; 83735; 84132; 84145; 85025; 86140; 87040; 87081; 87086; 87631; 93005; 94761; 97162; 97166; 97530; 99284; 99285; 99291; A9270; J0696; J1650; J2060; J3480; J7030; J7120; Q9967; S4990

== ENCOUNTER 2025-02-18 19:25 | Outpatient (CLI) | payer MEDICARE, SELFPAY | END 2025-02-18 19:26 | disposition home or self-care (01) | LOC: AMB 03-15 16:12 | PROVIDERS: Visit Provider Emergency Medicine | DX: G82.50 Quadriplegia, unspecified (principal); N39.0 Urinary tract infection, site not specified | CPT/HCPCS: A0425; A0428 ==

== ENCOUNTER 2025-03-17 07:02 | Outpatient (CLI) | payer MEDICARE, SELFPAY | END 2025-03-17 07:03 | disposition home or self-care (01) | LOC: AMB 03-19 01:01 | PROVIDERS: Visit Provider Family Medicine | DX: R41.82 Altered mental status, unspecified (principal) | CPT/HCPCS: A0425; A0429 ==

== ENCOUNTER 2025-03-17 07:35 | Inpatient (IN) | payer MEDICARE, SELFPAY ==
--- OUTSIDE RECORDS SUMMARY | 2025-03-02 06:17 | XMS_ITS | Continuity of Care Document ---
Author Organization [facility] Address [address] [place] [phone] Phone Care Team Providers Care School Operations Manager Name Role Phone Will Esteban STOCK Unavailable Unavailabl e Procedures Procedure Date OFFICE/OUTPATIENT VISIT, [facility] Advance Directives Directive Yes / No Effective Date File Name No Information Encounters Encounter Description Practice Location Reason(s) For Visit Diagnoses Date Provider Providers Copied on Encounter [facility], [address] [place] [address], [id number] , [place] tel:[phone] [facility] No Information 5 Palmer Orellana. [address] [place] [address], [id number], [place]. tel:[phone] OFFICE/OUTPA TIENT VISIT, [facility], [address] [place] [address], [id number] , [place] tel:[phone] [facility] Neck Pain (chief complaint) CervicalgiaInjury of cervical spinal cord, sequelaLong term (current) use of opiate analgesic Sep- 5 Aisha Comer. [address], [address], [place], [place], [id number], [place]. tel:[phone] Referring Provider: Esteban Neri, [address] [place], [place] [address], [address] . tel:[phone] Family History Family Member Type Diagnosis Age At Onset No Information Payers Payer name Insurance type Covered republican ID Efrem weiss(s) [facility] [id number] Social History Type Description Quantity Date Captured Comments Alcohol Use Details Unknown Caffeine Use Details Unknown Tobacco Use Status Smoking Status No Information Sex Male Chief Complaint And Reason For Visit No Information Reason For Referral Reason For Referral No Information Plan Of Treatment Date Type Action Status Goal Unhealthy drug use screening . Due on due Goal Hepatitis C screening. Due o n due Goal Update Social History. Due o n due Goal Tobacco Use. Due on due Goal Review Allergy List. Due on due Goal Height. Due on d ue Goal Weight. Due on d ue Goal Medication Reconciliation. D ue on due Goal PHQ-9. Due on du e Goal Tobacco screening. Due on due Goal ALT (SGPT). Due on due Goal AST (SGOT). Due on due Goal OARS. Due on due Goal Creatinine. Due on due Goal UDT. Due on due Goal Order Annual PT. Due on due Goal SOLUTIONS DELIVERY CONSULTANT Scanned. Due on due Goal BACTERIOLOGIST DAIRY Paperwork. Due on due Goal Hepatitis C screening. Due o n due Goal Height. Due on d ue Goal Tobacco screening. Due on due Goal Update Social History. [...] patient, referred by Mery Morgan CNP [place] [facility] Previous clinic notes and records from [facility] reviewed. Reynold is a 34 [...] transitional care and is currently living a fdc. He able to perform some ADLs independently, [...] Has completed extensive PT and rehab at [facility]. Last MRI completed in 08/2023 at [facility]. Previously tried buprenorphine (GI upset, nausea, vomiting). Currently managed on oxycodone 5mg 4/day, pregabalin 300mg BID, baclofen 20mg TID, methocarbamol, and Tylenol. Oxycodone had been managed by [facility] since he was hospitalized. However, he states [...] mation No Information Assessments Type Assessment Date No Information Patient Care Teams Name Effective Dates (start - stop) Status Members No Information
--- OUTSIDE RECORDS SUMMARY | 2025-03-02 06:17 | XMS_ITS | Continuity of Care Document ---
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 [address] [place] [address], [id number], [place]. tel:[phone] OFFICE/OUTPA TIENT VISIT, [facility], [address] [place] [address], [id number] , [place] tel:[phone] [facility] Neck Pain (chief complaint) CervicalgiaInjury of cervical spinal cord, sequelaLong term (current) use of opiate analgesic Sep- 5 Aisha Comer. [address], [place], [place], [id number], [place]. tel:[phone] Referring Provider: Esteban Neri, [address] [place], [place] [address], [address] . tel:[phone] Family History Family Member Type Diagnosis Age At Onset No Information Payers Payer name Insurance type Covered libertarian ID Efrem weiss(s) [facility] [id number] Social History Type Description Quantity Date Captured [...] Order Annual PT. Due on due Goal DIRECTOR HAIR Scanned. Due on due Goal TELEVISION SERVICER Paperwork. Due on due Goal Hepatitis C [...] Date Complaint History Of Prese nt Illness Comments: This i s my first evaluation of the patient, referred by Mery Morgan CNP from [facility]. Previous clinic notes and records from [facility] reviewed. Reynold is a 34 [...] transitional care and is currently living a alf. He able to perform some ADLs independently, [...] Has completed extensive PT and rehab at [facility]. Last MRI completed in 08/2023 at [facility]. Previously tried buprenorphine (GI upset, nausea, vomiting). Currently managed on oxycodone 5mg 4/day, pregabalin 300mg BID, baclofen 20mg TID, methocarbamol, and Tylenol. Oxycodone had been managed by [facility] since he was hospitalized. However, he states today that he has been advised to find a pain clinic to manage this medication. Reynold is interested in medication management, particularly of oxycodone, as he only has one day left of this medication. No other concerns today. Neck Pain The severity of the problem is 5. Duration: chronic. The patient describes the pain as Throbbing. Aggravating factors include rough movement. Relieving factors include medications. Functional Status Date Functional Assessmen t No Information Instructions Date Instruction Additional Infor mation No Information Assessments Type Assessment Date No Information Patient Care Teams Name Effective Dates (start - stop) Status Members No Information
[2025-03-17] VITALS (60 sets, daily range): BP systolic 80–111; BP diastolic 46–85; PULSE 73–100; RESP 12–26; TEMP 35.9–36.3; O2SAT 88–97; BMI 25.1
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
--- NOTE | 2025-03-17 07:50 | CRLHL7_ITS ---
For Patients: As a result of the Century Cures Act, medical imaging exams and procedure reports are released immediately into your electronic medical record. You may view this report before your referring provider. If you have questions, please contact your health care provider. INDICATION: Altered mental status COMPARISON: 02/15/2025 TECHNIQUE: 1 view chest radiograph. FINDINGS: Devices: Cervicothoracic posterior instrumented fusion. Lung volumes are good. Moderate multifocal patchy consolidations, worse than the previous exam. No pulmonary edema. No pleural effusion. No pneumothorax. No pneumomediastinum. Slightly widened mediastinal contour compared to prior even when accounting for the lower lung volumes. Heart size is about the same Postop spine. IMPRESSION: 1. Multifocal opacities are probably infectious or inflammatory. 2. Widened mediastinal contours are nonspecific. Can be due to projection/volumes but vascular and soft tissue abnormalities/adenopathy are also in the differential. Dictated by Alessia Ames MD @ 03/17/2025 8:26:16 AM (Electronically Signed)
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
[2025-03-17 08:05] LABS: HCO3 VBG 22 mmol/L (21-28); Lactate Sepsis w/Reflex* 1.1 mmol/L (0.5-1.9); PCO2 VBG 45 mmHG (40-50); PO2 VBG 46.7 mmHG (25-47); pH VBG 7.290 (7.32-7.43)
[2025-03-17 08:06] LABS: Hematocrit* 35.2 % (37.0-53.0); Hemoglobin* 11.3 gm/dL (13.5-17.5); Immature Granulocytes Pct Auto 0.9 %; Mean Corpuscular HGB Conc 32 gm/dL (32-36); Mean Corpuscular Hemoglobin 30 pg (26-34); Mean Corpuscular Volume 93 fL (80-100); RDW Coefficient of Variation % 15.4 % (11.5-15.5); Red Blood Count* 3.78 m/uL (4.30-5.90); White Blood Count* 22.47 K/uL (4.50-11.00)
[2025-03-17 08:09] LABS: Immature Granulocytes Abs Auto 0.20 K/uL (0.00-0.30); Lymphocytes Absolute Auto 1.20 K/uL (0.90-2.90); Slide Review Reflex No
--- NOTE | 2025-03-17 08:20 | CRLHL7_ITS ---
For Patients: As a result of the 21st Century Cures Act, medical imaging exams and procedure reports are released immediately into your electronic medical record. You may view this report before your referring provider. If you have questions, please contact your health care provider. INDICATION: Sepsis, quadriplegia. COMPARISON: Same day CT a chest. Prior CTA chest 02/16/2025 TECHNIQUE: CT of the abdomen and pelvis without intravenous contrast. Multiplanar axial, coronal, and sagittal reformats were reconstructed. Contrast: None. FINDINGS: Lung bases: Respiratory motion and expiratory appearance of the lung bases. There are small bilateral pleural effusions. Liver: Normal. No mass. Gallbladder and bile ducts: There is a 7 millimeter mildly hyperdense stone at the gallbladder neck. No gallbladder wall thickening or pericholecystic edema. No bile duct dilation. Pancreas: Normal. Spleen: Normal. Adrenal glands: Normal. Kidneys: Transverse lie of the right kidney. There is some motion artifact through the level of the kidneys. Suspect a left lower pole cyst that measures 2.1 cm, seen on the coronal images. Suspect some very small left renal calculi. No right renal calculi seen. There is some asymmetric right inferior perinephric stranding extending along the psoas muscle. No urinary tract dilatation. Urinary bladder: The urinary bladder is mildly distended. There are 3 calcifications at the level of the proximal ureter or central prostate. See series 6, image 85. These range in size from 2-3 millimeters. Pelvis: No discrete cyst or mass. Vessels: Normal. Bowel: There is some hyperdense ingested material in the stomach. No dilated or inflamed appearing small bowel or colon. Normal appendix. Moderate to large stool burden. Lymph nodes: No adenopathy. Peritoneum: No ascites. No free air. Abdominal wall: No bowel containing hernia. Mild generalized muscular atrophy most pronounced in the right lower chest and upper abdomen. Bones: Healing left 9th anterior rib fracture. Healing right 7th, 9th, and 10th rib fractures. Mild superior wedging of the T11 vertebral body is not a new finding. There is a sharply angulated sacrococcygeal junction. There is overlying soft tissue induration. No full-thickness wound or findings of osteomyelitis. No focal worrisome bone lesions. IMPRESSION: 1. There are several 2-3 millimeter calculi in the proximal ureter versus prostate. 2. Suspect there are some punctate left-sided renal calculi. Difficult to evaluate due to motion artifact. 3. There is asymmetric right perinephric stranding. The differential is predominantly a recently passed calculus or pyelonephritis. Much less commonly unilateral renal vein thrombosis or trauma. 4. There is some induration over the sacrococcygeal junction without a full-thickness wound or findings of osteomyelitis. 5. Moderate to large stool burden. 6. Several healing nondisplaced bilateral anterior inferior rib fractures. 7. There is a 7 millimeter gallstone. No noncontrast CT findings of acute cholecystitis. 8. Small bilateral pleural effusions and bibasilar atelectasis. See the same-day chest CT for more details. Please note that all CT scans at this facility use dose modulation, iterative reconstruction, and/or weight-based dosing when appropriate to reduce radiation dose to as low as reasonably achievable. Dictated by Alessia Ames MD @ 03/17/2025 9:44:52 AM (Electronically Signed)
[2025-03-17 08:22] LABS: Albumin* 3.5 g/dL (3.3-5.0); Chloride* 103 mmol/L (96-114)
[2025-03-17 08:23] LABS: Potassium* 4.3 mmol/L (3.6-5.1); Sodium* 138 mmol/L (135-149)
[2025-03-17 08:25] LABS: Blood Urea Nitrogen* 47 mg/dL (5-24); Creatinine* 1.8 mg/dL (0.5-1.5); Est. Creatinine Clearance* 57.83; Estimated Glomerular Filt Rate 50 ml/min
[2025-03-17 08:26] LABS: Alanine Aminotransferase* 47 U/L (4-50); Alkaline Phosphatase* 137 U/L (40-150); Anion Gap 15 mEq/L (7-15); Aspartate Amino Transferase* 36 U/L (12-35); Bilirubin Direct* 1.4 mg/dL (0.0-0.5); Bilirubin Total* 1.6 mg/dL (0.1-1.5); Calcium* 8.5 mg/dL (8.4-10.6); Carbon Dioxide* 20 mmol/L (20-32); Glucose* 90 mg/dL (60-115); Total Protein* 6.5 g/dL (6.0-8.3)
--- NOTE | 2025-03-17 08:33 | CRLHL7_ITS ---
For Patients: As a result of the 21st Century Cures Act, medical imaging exams and procedure reports are released immediately into your electronic medical record. You may view this report before your referring provider. If you have questions, please contact your health care provider. INDICATION: Hypoxia. Sepsis. Patient is quadriplegic. COMPARISON: 02/16/2025 TECHNIQUE: CT angiogram chest with contrast, pulmonary embolism protocol. Multiplanar axial, coronal, and sagittal reformats are included. MIP images to improve detection of pulmonary emboli are included. Intravenous contrast: 95 mL Isovue 370. FINDINGS: PE: Well-timed contrast bolus. There is some respiratory motion. No pulmonary emboli are seen. Small and distal pulmonary emboli may not be detected on this exam. Mildly dilated 3.3 cm main pulmonary artery. Normal sized right heart chambers. Small volume reflux of contrast below the diaphragm. Airway: Expiratory appearance of the airway. Lungs: Respiratory motion. Expiratory appearance of the lungs. There is bibasilar atelectasis. Slightly worse on the right and improved on the left compared to the previous exam. The previously seen consolidative opacity in the right upper lobe along the major fissure has resolved. No focal pneumonia seen on this examination. Small nodules would easily be obscured by the degree of respiratory motion. No emphysema. Pleura: Trace bilateral effusions. No pneumothorax. Lymph nodes: There are some mildly prominent mediastinal lymph nodes. For example there is a right paratracheal lymph node that measures 1.0 x 1.0 cm on series 7, image 44. Large subcarinal/right posterior hilar lymph node measures 1.4 x 1.8 cm. Lymph nodes are similar to the prior exam.. Mediastinum: No pneumomediastinum. No mass. Heart and great vessels: No pericardial effusion. Normal cardiac chamber size. No calcified atherosclerotic plaques. No aortic aneurysm. Chest wall: Asymmetric right chest wall muscular atrophy. Upper abdomen: Please see same day CT abdomen pelvis. Bones: Posterior cervicothoracic fusion extends through the T4 level. No hardware complication seen as included within the field of view. There are healing right 7th 9th and 10th anterior rib fractures. There is a healing left 8th anterior rib fracture. The lower ribs are not fully included in the field of view. Mild T11 superior endplate wedging/Schmorl`s node is similar to prior. Mild T7 superior endplate compression is also unchanged. No focal bone lesions. IMPRESSION: 1. There is some respiratory motion. No pulmonary emboli seen. 2. Expiratory appearance of the lungs with respiratory motion. There is some basilar atelectasis but no focal pneumonia. 3. There is mediastinal fat deposition and some mildly enlarged mediastinal lymph nodes. Overall appear similar to the prior examination. Please note that all CT scans at this facility use dose modulation, iterative reconstruction, and/or weight-based dosing when appropriate to reduce radiation dose to as low as reasonably achievable. Dictated by Alessia Ames MD @ 03/17/2025 9:55:03 AM (Electronically Signed)
[2025-03-17 08:43] LABS: Procalcitonin* 15.40 ng/mL (<0.50)
[2025-03-17] MEDS: MEROPENEM 1 GM in 0.9 % SODIUM CHLORIDE Mini-bag 100 ML IVPB ×2 (09:00→17:17)
[2025-03-17 09:21] LABS: PCR FLU A Negative PCR FLU A (Negative); PCR FLU B Negative PCR FLU B (Negative); PCR RSV Negative PCR RSV (Negative); SARS PCR* Negative SARS-CoV-2 (Negative)
[2025-03-17 09:43] LABS: Appearance Urine Cloudy (Clear)
[2025-03-17 09:52] LABS: Cannabinoid Screen Urine POSITIVE (Negative); Methamphetamines Screen Urine Negative (Negative); Tricyclic Antidepressant Urine POSITIVE (Negative)
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
[2025-03-17 13:10] LABS: Acetaminophen* < 10.0 ug/mL (10.0-30.0); Ethanol* < 0.01 % (0.01-0.03); Salicylate* < 1.0 mg/dL (1.0-10)
[2025-03-17] MEDS: MORPHINE 4 MG/ML INJ IVP (13:36)
[2025-03-17] MEDS: LACTATED RINGERS 1000 ML 1,000 ML 125 ML IV ×2 (13:54→22:23)
[2025-03-17 14:23] LABS: Hematocrit* 38.3 % (37.0-53.0); Hemoglobin* 11.9 gm/dL (13.5-17.5); Immature Granulocytes Abs Auto 0.10 K/uL (0.00-0.30); Immature Granulocytes Pct Auto 0.8 %; Mean Corpuscular HGB Conc 31 gm/dL (32-36); Mean Corpuscular Hemoglobin 29 pg (26-34); Mean Corpuscular Volume 94 fL (80-100); RDW Coefficient of Variation % 15.5 % (11.5-15.5); Red Blood Count* 4.06 m/uL (4.30-5.90); White Blood Count* 12.05 K/uL (4.50-11.00)
[2025-03-17 14:34] LABS: Lymphocytes Absolute Auto 0.50 K/uL (0.90-2.90); Slide Review Reflex No
--- NOTE | 2025-03-17 14:51 | CRLHL7_ITS ---
For Patients: As a result of the Cures Act, medical imaging exams and procedure reports are released immediately into your electronic medical record. You may view this report before your referring provider. If you have questions, please contact your health care provider. INDICATION: AMS. CONFUSION. QUAD COMPARISON: CT head on February 15, 2025 TECHNIQUE: CT of the head without contrast. FINDINGS: Motion degraded exam. Brain Parenchyma: No acute infarct, acute intracranial hemorrhage, mass effect, or midline shift. Minimal intraparenchymal calcifications in the right frontal lobe with adjacent hypodense tract extending to the ventricle, likely sequela of prior ventricular shunt catheter placement. Ventricles: No hydrocephalus. Extra-axial Spaces: No abnormal fluid collection. Paranasal sinuses: No significant mucosal thickening. Orbits: Unremarkable Mastoid Sinuses: Unremarkable Cranium: No acute fracture. Partially imaged cervical spinal fusion hardware. Soft tissues: Unremarkable IMPRESSION: No CT evidence of an acute intracranial process. Please note that all CT scans at this facility use dose modulation, iterative reconstruction, and/or weight-based dosing when appropriate to reduce radiation dose to as low as reasonably achievable. Dictated by Moses Marcelo MD @ 03/17/2025 4:16:51 PM (Electronically Signed)
--- NOTE | 2025-03-17 15:07 | PC.NURSE ---
End of shift report : Patient to CCU at 1255 from emergency room brought by stretcher. Patient responds to verbal stimuli but answers inappropriate to questions asked, patient is able to state his name and that he is from [place]. Pain reported but unable to rate pain. Indwelling paris cath inserted with return of 800cc of clear, pale yellow urine. O2 sats 87% on room air, MD updated and new orders for oxygen. O2 applied at 1L and able to maintain sats>90%. Patient noted to tighten arms and posture with exhalation, MD notified and new order for head CT.
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
--- NOTE | 2025-03-17 16:07 | PC.NURSE ---
Addendum entered by Sahil Barrera RN 03/18/25 10:47: out side of right foot right foot left foot Original Note: middle of the back right foot top of left foot side of left foot
[2025-03-17] MEDS: DOCUSATE SODIUM/BENZOCAINE 5 ML ENEMA PR (19:06)
[2025-03-17] MEDS: BUSPIRONE 10 MG TABLET PO (20:54)
[2025-03-17] MEDS: MELATONIN 3 MG TABLET PO (20:54)
[2025-03-17] MEDS: ENOXAPARIN 40 MG/0.4 ML INJ SUBCUT (20:54)
[2025-03-17] MEDS: PREGABALIN 100 MG CAPSULE 300 MG PO (20:56)
[2025-03-17] MEDS: SODIUM CHLORIDE 0.9 % (FLUSH) 10 ML SYRINGE 5 ML IVF (21:27)
--- NOTE | 2025-03-17 22:11 | PC.NURSE ---
Per patient request, order was obtained for Enemeez enema. Pt stated that he uses these daily to assist with bowel movements. After Enemeez administration, patient passed gas but did not have a bowel movement. Refused evening dose of senna. Pt stated he 'didn't want to be pooping all night long'. As patient became more alert and awake, he was found to be confused. Did not know where he was and was making incoherent statements. Saying things like take this needle out so I can poop and there is something vibrating in my butt, I need you to take it out. Pt oriented and reassured.
[2025-03-18] VITALS (22 sets, daily range): BP systolic 81–126; BP diastolic 40–96; PULSE 94–124; RESP 14–20; TEMP 36.3–37.4; O2SAT 91–93
[2025-03-18] MEDS: MEROPENEM 1 GM in 0.9 % SODIUM CHLORIDE Mini-bag 100 ML IVPB ×2 (01:09→17:22)
[2025-03-18] MEDS: MORPHINE 4 MG/ML INJ IVP (03:22)
[2025-03-18] MEDS: ACETAMINOPHEN 325 MG TABLET 975 MG PO ×2 (03:41→23:46)
--- NOTE | 2025-03-18 04:45 | PC.NURSE ---
Pt noted to be having 8/10 back and now c/o R arm pain uncontrolled by previous PRN medications given. EKG performed to r/o cardiac issue- sinus tachycardia noted, otherwise normal ECG. VS: B/P 124/70, P 118, R 20, T 98.9, O2 sat 93% on [address] Miller with [facility] was updated with the above information. See medication orders for new orders.
[2025-03-18] MEDS: BACLOFEN 10 MG TABLET 20 MG PO ×3 (04:59→20:41)
[2025-03-18 06:13] LABS: HCO3 VBG 20 mmol/L (21-28); PCO2 VBG 36 mmHG (40-50); PO2 VBG 176.0 mmHG (25-47); pH VBG 7.351 (7.32-7.43)
[2025-03-18 06:21] LABS: Hematocrit* 40.8 % (37.0-53.0); Hemoglobin* 12.9 gm/dL (13.5-17.5); Immature Granulocytes Pct Auto 1.4 %; Mean Corpuscular HGB Conc 32 gm/dL (32-36); Mean Corpuscular Hemoglobin 30 pg (26-34); Mean Corpuscular Volume 94 fL (80-100); RDW Coefficient of Variation % 15.5 % (11.5-15.5); Red Blood Count* 4.36 m/uL (4.30-5.90); White Blood Count* 13.38 K/uL (4.50-11.00)
[2025-03-18 06:24] LABS: Immature Granulocytes Abs Auto 0.20 K/uL (0.00-0.30); Lymphocytes Absolute Auto 0.50 K/uL (0.90-2.90); Slide Review Reflex No
--- NOTE | 2025-03-18 06:44 | PC.NURSE ---
Pt's altered mental status improved throughout shift, pt is now oriented x2 with some difficulties with time. Afebrile. Pt is was on 1-2.5L O2 via nasal cannula to maintain O2 stats of 90%. Pt reports 2-9/10 pain in back and right arm. Updated MD Oraka about increase pain in back and right arm. Took EKG, showing sinus tachycardia. Orders given to give Dilaudid and baclofen and to d/c morphine, gave ordered medications with relief. Added Aqua K pad for pain. Pt was turned and repositioned throughout night.
[2025-03-18 07:01] LABS: Procalcitonin* 8.08 ng/mL (<0.50)
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
[2025-03-18] MEDS: LACTATED RINGERS 1000 ML 1,000 ML 125 ML IV (07:29)
[2025-03-18 07:44] LABS: Albumin* 2.9 g/dL (3.3-5.0); Chloride* 107 mmol/L (96-114); Potassium* 3.5 mmol/L (3.6-5.1); Sodium* 137 mmol/L (135-149)
[2025-03-18 07:47] LABS: Alanine Aminotransferase* 32 U/L (4-50); Alkaline Phosphatase* 137 U/L (40-150); Anion Gap 10 mEq/L (7-15); Aspartate Amino Transferase* 24 U/L (12-35); Bilirubin Total* 0.9 mg/dL (0.1-1.5); Blood Urea Nitrogen* 32 mg/dL (5-24); Carbon Dioxide* 20 mmol/L (20-32); Creatinine* 1.1 mg/dL (0.5-1.5); Est. Creatinine Clearance* 94.62; Estimated Glomerular Filt Rate 90 ml/min; Total Protein* 5.6 g/dL (6.0-8.3)
[2025-03-18 07:48] LABS: Calcium* 8.4 mg/dL (8.4-10.6); Glucose* 75 mg/dL (60-115)
[2025-03-18] MEDS: 0.9 % SODIUM CHLORIDE 500 ML 500 ML IV (08:02)
--- NOTE | 2025-03-18 08:56 | CRLHL7_ITS ---
For Patients: As a result of the Century Cures Act, medical imaging exams and procedure reports are released immediately into your electronic medical record. You may view this report before your referring provider. If you have questions, please contact your health care provider. Indication: Left upper extremity edema. Technique: Ultrasound venous duplex left upper extremity. Compression venous exam was performed using hill-scale, color Doppler, and spectral Doppler imaging. Comparison: None. Findings: LEFT Internal jugular: Patent. Innominate: Patent. Subclavian: Patent. Axillary: Patent. Brachial: Patent. Basilic: Patent. Cephalic: Patent. RIGHT Internal jugular: Not evaluated. Impression: Normal ultrasound of the left upper extremity veins. No sign of venous thrombus. Generalized nonspecific edema in the forearm. Dictated by Refugio Pepe MD @ 03/18/2025 12:21:15 PM (Electronically Signed)
[2025-03-18] MEDS: MIDODRINE HCL 5 MG TABLET 2.5 MG PO ×2 (09:12→12:09)
[2025-03-18] MEDS: TOLTERODINE TARTRATE 2 MG CAP.ER.24H PO (09:12)
[2025-03-18] MEDS: BUSPIRONE 10 MG TABLET PO ×3 (09:12→20:38)
[2025-03-18] MEDS: SERTRALINE 100 MG TABLET PO (09:13)
[2025-03-18] MEDS: PREGABALIN 100 MG CAPSULE 300 MG PO ×2 (09:16→20:45)
[2025-03-18] MEDS: SODIUM CHLORIDE 0.9 % (FLUSH) 10 ML SYRINGE 5 ML IVF ×3 (09:22→23:52)
--- NOTE | 2025-03-18 10:45 | XR_ITS ---
Patient: MARIUSZ DASH Facility:?[facility] Patient ID:?[id number] Site Patient ID:?[id number]. Site :?[id number] Study:?XRay-Chest PORTABLE-03/18/2025 1:43:31 PM Ordering Physician:Stephanie Lauren Final Report: INDICATION: Central line placement attempt. COMPARISON: CT chest 03/17/2025, chest x-ray 03/17/2025. TECHNIQUE: X-ray chest portable 1 view. FINDINGS: Tubes and lines: No evidence of a central line. Lungs: There is pulmonary vascular congestion. No lobar airspace consolidation. There is subsegmental left basilar atelectasis. No pleural effusion or pneumothorax. Heart/mediastinum: There is prominence of the cardiomediastinal silhouette, which may be secondary to technique and low lung volumes. Osseous structures: Posterior spinal fusion hardware within the cervical and upper thoracic spine is partially visualized. Impression: No evidence of a central line on the provided image. No pneumothorax. Dictated by Ranulfo Borrego MD @ 03/18/2025 2:08:18 PM Signed by:?Ranulfo Borrego MD @03/18/2025 2:08:18 PM (Electronic Signature)
[2025-03-18] MEDS: LIDOCAINE 1 % PF 30 ML 4.2 ML INJECTION (11:09)
[2025-03-18] MEDS: THIAMINE 100 MG TABLET PO (12:09)
[2025-03-18 15:23] LABS: Lactate* 0.9 mmol/L (0.5-1.9)
[2025-03-18 16:02] LABS: NT Pro B Type NatriureticPept* 12100 pg/mL (See Note)
--- NOTE | 2025-03-18 16:41 | CRLHL7_ITS ---
For Patients: As a result of the Century Cures Act, medical imaging exams and procedure reports are released immediately into your electronic medical record. You may view this report before your referring provider. If you have questions, please contact your health care provider. Indication: PICC line placement Technique: Chest 1 view. Comparison: Same day chest radiograph. Findings/Impression: Lines and tubes: Interval placement of right upper extremity PICC extending to the superior right atrium. Cardiovascular and mediastinum: Similarly enlarged cardiomediastinal silhouette. Lungs and pleural space: Persistent interstitial prominence likely reflecting pulmonary edema. Minimal left basilar atelectasis. No pleural effusion or pneumothorax. Bones and soft tissues: No acute findings. Partially visualized cervicothoracic spinal hardware. Dictated by Nelsy Johnson MD @ 03/18/2025 5:29:17 PM (Electronically Signed)
[2025-03-18] MEDS: FUROSEMIDE 10 MG/ML inj 20 MG IVP ×2 (17:20→23:29)
[2025-03-18] MEDS: POTASSIUM CHLORIDE 10 MEQ/100 ML PIGGYBACK 100 MEQ IVPB ×3 (18:19→23:29)
[2025-03-18] MEDS: MELATONIN 3 MG TABLET PO (20:37)
[2025-03-18] MEDS: ENOXAPARIN 40 MG/0.4 ML INJ SUBCUT (20:38)
[2025-03-18] MEDS: SENNOSIDES 1 TAB TABLET 4 TAB PO (20:43)
[2025-03-18] MEDS: METOPROLOL TARTRATE 1 MG/ML inj 2.5 MG IVP (23:52)
[2025-03-19] VITALS (21 sets, daily range): BP systolic 93–137; BP diastolic 55–88; PULSE 89–119; RESP 12–24; TEMP 36.3–37.1; O2SAT 88–93
[2025-03-19] MEDS: POTASSIUM CHLORIDE 10 MEQ/100 ML PIGGYBACK 100 MEQ IVPB ×3 (00:31→19:59)
[2025-03-19] MEDS: MEROPENEM 1 GM in 0.9 % SODIUM CHLORIDE Mini-bag 100 ML IVPB ×3 (01:32→18:14)
[2025-03-19 06:05] LABS: Hematocrit* 42.3 % (37.0-53.0); Hemoglobin* 13.7 gm/dL (13.5-17.5); Immature Granulocytes Abs Auto 0.06 K/uL (0.00-0.30); Immature Granulocytes Pct Auto 0.6 %; Mean Corpuscular HGB Conc 32 gm/dL (32-36); Mean Corpuscular Hemoglobin 29 pg (26-34); Mean Corpuscular Volume 91 fL (80-100); RDW Coefficient of Variation % 15.8 % (11.5-15.5); Red Blood Count* 4.66 m/uL (4.30-5.90); White Blood Count* 10.47 K/uL (4.50-11.00)
[2025-03-19 06:07] LABS: Lymphocytes Absolute Auto 0.90 K/uL (0.90-2.90); Slide Review Reflex No
[2025-03-19 06:18] LABS: Albumin* 2.9 g/dL (3.3-5.0); Chloride* 108 mmol/L (96-114)
[2025-03-19 06:19] LABS: Potassium* 3.5 mmol/L (3.6-5.1); Sodium* 142 mmol/L (135-149)
[2025-03-19 06:21] LABS: Alanine Aminotransferase* 29 U/L (4-50); Anion Gap 11 mEq/L (7-15); Aspartate Amino Transferase* 24 U/L (12-35); Blood Urea Nitrogen* 24 mg/dL (5-24); Carbon Dioxide* 23 mmol/L (20-32); Creatinine* 1.1 mg/dL (0.5-1.5); Est. Creatinine Clearance* 94.62; Estimated Glomerular Filt Rate 90 ml/min; Total Protein* 5.4 g/dL (6.0-8.3)
[2025-03-19 06:22] LABS: Alkaline Phosphatase* 168 U/L (40-150); Bilirubin Total* 0.8 mg/dL (0.1-1.5); Calcium* 8.5 mg/dL (8.4-10.6); Glucose* 95 mg/dL (60-115)
[2025-03-19 06:39] LABS: Procalcitonin* 4.79 ng/mL (<0.50)
[2025-03-19] MEDS: METOPROLOL TARTRATE 1 MG/ML inj 2.5 MG IVP ×2 (07:24→12:29)
--- NOTE | 2025-03-19 07:34 | PC.NURSE ---
Pt is alert and oriented to self and place only.?Pt continues to have some?intermittent?confusion.?Around 0000 03/19/25 pt started to get restless and reported pain but was unable to rate.?Pt was rocking back in forth in bed?unable to get comfortable, RN and chargeback specialist repositioned pt multiple times with little relief.?Pt?CIWA?was?17 managed per protocol PRN Ativan.?Pt?denied pain at the beginning of restless but after?being?repositioned multiple times pt?reported pain,?when asking pt?where the pain?was,?he reported both arms, then?when asked?again?to describe pain?he reported?his stomach?was where his pain was?managed with?PRN medication.?Pt?was turned and repositioned throughout?night. Pt had second episode of restlessness and confusion starting around 06. Pt stating GET ME OUT OF THIS BED. PULL ME UP RN attempted to reposition pt into more comfortable position with no relief. Pt continued to yell out PULL ME UP, I KNOW YOU CAN. GET ME the FUCK UP RN attempted to help pt sit up farther in bed but pt wanted to get out of bed. RN educated pt on fall risk and that we could not safely let him sit on the side of the bed. Pt stated I DON'T WANT TO SIT ON THE FUCKING BED. I WANT OT GET UP. 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 Pt stated I KNOW THAT BUT YOU CAN STILL GET ME UP. FUCK! PT then proceeded to pull off tele, nasal cannula and gown. RN made several attempts to reorient but pt could not be oriented. Security called, Updated WILIAM CONTRERAS, IV Adivan ordered and given with relief. ??
[2025-03-19] MEDS: LIDOCAINE 5% PATCH 1 PATCH TRANSDERMA (08:53)
[2025-03-19 08:57] LABS: Ammonia* 22.6 umol/L (13.1-30.0)
[2025-03-19] MEDS: SODIUM CHLORIDE 0.9 % (FLUSH) 10 ML SYRINGE 5 ML IVF (10:46)
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
--- NOTE | 2025-03-19 13:30 | REH.PT ---
PT eval and treat order received. Patient needing IV Ativan and not appropriate for PT when approached this am and pm. Will check status tomorrow.
--- NOTE | 2025-03-19 14:24 | REH.OT ---
OT: Order received 03/17/25 and eval had been held until today due to patient status. Patient requiring IV Ativan multiple times and not appropriate for therapy today. Will continue to check status and initiate when patient medically appropriate.
[2025-03-19] MEDS: FUROSEMIDE 10 MG/ML inj 40 MG IVP (16:48)
[2025-03-19] MEDS: LACTATED RINGERS 1000 ML 1,000 ML 75 ML IV (16:51)
[2025-03-19] MEDS: LACTATED RINGERS 500 ML 500 ML IV (19:48)
[2025-03-19] MEDS: BUSPIRONE 10 MG TABLET PO (20:15)
[2025-03-19] MEDS: ENOXAPARIN 40 MG/0.4 ML INJ SUBCUT (20:16)
[2025-03-19] MEDS: BACLOFEN 10 MG TABLET 20 MG PO (20:16)
[2025-03-19] MEDS: PREGABALIN 100 MG CAPSULE 300 MG PO (20:41)
[2025-03-19] MEDS: DOCUSATE SODIUM/BENZOCAINE 5 ML ENEMA PR (20:48)
[2025-03-20] VITALS (19 sets, daily range): BP systolic 80–143; BP diastolic 49–91; PULSE 73–106; RESP 14–26; TEMP 35.8–36.8; O2SAT 88–95
[2025-03-20] MEDS: SODIUM CHLORIDE 0.9 % (FLUSH) 10 ML SYRINGE 5 ML IVF ×11 (00:06→21:39)
[2025-03-20] MEDS: METOPROLOL TARTRATE 1 MG/ML inj 2.5 MG IVP ×4 (00:07→17:47)
[2025-03-20] MEDS: MEROPENEM 1 GM in 0.9 % SODIUM CHLORIDE Mini-bag 100 ML IVPB ×2 (01:08→08:56)
--- NOTE | 2025-03-20 06:24 | PC.NURSE ---
Pt?oriented to self only. Afebrile. Pt CIWA scores 2-16 managed?with PRN medication per protocol. RN?attempted?to give?scheduled PM medications pt only took some of the medication and spit out the rest refusing them. Pt?s paris is?patent?and?draining.?Pt?was turned and repositioned throughout?night.??
[2025-03-20 07:27] LABS: Hematocrit* 32.7 % (37.0-53.0); Hemoglobin* 10.7 gm/dL (13.5-17.5); Immature Granulocytes Pct Auto 0.9 %; Mean Corpuscular HGB Conc 33 gm/dL (32-36); Mean Corpuscular Hemoglobin 30 pg (26-34); Mean Corpuscular Volume 90 fL (80-100); RDW Coefficient of Variation % 15.6 % (11.5-15.5); Red Blood Count* 3.63 m/uL (4.30-5.90); White Blood Count* 13.16 K/uL (4.50-11.00)
[2025-03-20 07:29] LABS: Albumin* 3.0 g/dL (3.3-5.0); Chloride* 101 mmol/L (96-114); Sodium* 141 mmol/L (135-149)
[2025-03-20 07:30] LABS: Potassium* 3.1 mmol/L (3.6-5.1)
[2025-03-20 07:32] LABS: Alanine Aminotransferase* 25 U/L (4-50); Anion Gap 11 mEq/L (7-15); Aspartate Amino Transferase* 25 U/L (12-35); Blood Urea Nitrogen* 22 mg/dL (5-24); Carbon Dioxide* 29 mmol/L (20-32); Creatinine* 0.7 mg/dL (0.5-1.5); Est. Creatinine Clearance* 148.69; Estimated Glomerular Filt Rate 124 ml/min; Immature Granulocytes Abs Auto 0.10 K/uL (0.00-0.30); Lymphocytes Absolute Auto 1.20 K/uL (0.90-2.90); Slide Review Reflex No
[2025-03-20 07:33] LABS: Alkaline Phosphatase* 165 U/L (40-150); Bilirubin Total* 0.9 mg/dL (0.1-1.5); Calcium* 8.6 mg/dL (8.4-10.6); Glucose* 83 mg/dL (60-115); Total Protein* 6.0 g/dL (6.0-8.3)
[2025-03-20] MEDS: POTASSIUM CHLORIDE 10 MEQ/100 ML PIGGYBACK 100 MEQ IVPB ×4 (08:52→12:54)
[2025-03-20] MEDS: LACTATED RINGERS 1000 ML 1,000 ML 75 ML IV (08:52)
[2025-03-20] MEDS: FUROSEMIDE 10 MG/ML inj 40 MG IVP ×2 (08:56→15:09)
[2025-03-20] MEDS: LEVETIRACETAM 1,000 mg/100 ml INFUSION 750 MG IVPB ×2 (09:00→21:39)
[2025-03-20] MEDS: LIDOCAINE 5% PATCH 1 PATCH TRANSDERMA (09:07)
[2025-03-20] MEDS: MIDODRINE HCL 5 MG TABLET 2.5 MG PO (09:08)
[2025-03-20] MEDS: PREGABALIN 100 MG CAPSULE 300 MG PO ×2 (10:44→21:41)
[2025-03-20] MEDS: BUSPIRONE 10 MG TABLET PO ×3 (10:56→21:38)
[2025-03-20] MEDS: BACLOFEN 10 MG TABLET 20 MG PO ×3 (10:56→21:38)
[2025-03-20] MEDS: TOLTERODINE TARTRATE 2 MG CAP.ER.24H PO (10:56)
[2025-03-20] MEDS: SERTRALINE 100 MG TABLET PO (10:59)
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
[2025-03-20] MEDS: levoFLOXacin 750 MG/150 ML 750 MG/150 ML PIGGYBACK 100 MG IVPB (14:07)
--- NOTE | 2025-03-20 15:32 | PC.NURSE ---
Nursing Care Hours: [id number] Pt this shift calm and lethargic. Intermittently clammy to forehead, afebrile. Denies headache, nausea or tremors. Denies hallucinations. Is cooperative, allowing assessments. Taking pills crushed mixed with fluid as a slurry. This afternoon, tried pills whole one at a time while sitting up straight. Appears to have some difficulty aeb coughing after administration. The last pill was given whole with pudding and this did not produce a cough. Drinking thin liquids with straw alone does not produce cough. Pt has a weak cough but is coughing up creamy brown tinged thick sputum. Dried dark red debris or discharge cleaned from inside mouth and lips today. No active bleeding observed. Titrated from 1L to room air. Using vibratory pep with assist. IO needle removed. Electrophysiologist noted yellow drainage on white pillow case and sheets under and over the left leg. Needle removed without issue and gauze and Tegaderm applied. Couple hours later dressing required a change d/t saturation with clear yellow drainage. PICC line patent and asymptomatic. Mepilex applied to scabs over bilat feet. Feet elevated d/t pitting edema. Mepilex to back CDI, left in place.
--- NOTE | 2025-03-20 17:56 | PC.NURSE ---
End of Shift: Patient cooperative, does not interact much this shift. Patient vitally stable, lungs clear, BS WNL, IV running LR at 75. Patient slightly tachy. Patient did not respond when asked about pain. Patient was up in chair and is now back in bed. Mepilex on bilateral feet C/D/I. Patient ate some pudding, did order a tray but has not eaten it yet. Patient is in and out of sleeping. [place] intact and draining. Tele=NSR
[2025-03-20] MEDS: MELATONIN 3 MG TABLET PO (21:37)
[2025-03-20] MEDS: SENNOSIDES 1 TAB TABLET 4 TAB PO (21:38)
[2025-03-20] MEDS: ENOXAPARIN 40 MG/0.4 ML INJ SUBCUT (21:38)
[2025-03-21] VITALS (10 sets, daily range): BP systolic 94–146; BP diastolic 57–89; PULSE 74–96; RESP 14–18; TEMP 36.4–36.5; O2SAT 89–92
[2025-03-21] MEDS: SODIUM CHLORIDE 0.9 % (FLUSH) 10 ML SYRINGE 5 ML IVF ×3 (00:04→21:25)
[2025-03-21] MEDS: METOPROLOL TARTRATE 1 MG/ML inj 2.5 MG IVP ×2 (00:04→05:54)
[2025-03-21] MEDS: ACETAMINOPHEN 325 MG TABLET 975 MG PO ×3 (01:47→17:22)
--- NOTE | 2025-03-21 07:08 | PC.NURSE ---
Pt?oriented to self?and place with some interment confusion. Afebrile.?Pt reports ?moderate pain? in?back?and arms, managed with PRN medications.?Pt?CIWA?scores?2-6.?Pt?s paris is?patent?and?draining.?Pt?was turned and repositioned throughout?night.??
[2025-03-21 07:11] LABS: Hematocrit* 32.1 % (37.0-53.0); Hemoglobin* 10.6 gm/dL (13.5-17.5); Immature Granulocytes Abs Auto 0.09 K/uL (0.00-0.30); Immature Granulocytes Pct Auto 1.0 %; Lymphocytes Absolute Auto 1.70 K/uL (0.90-2.90); Mean Corpuscular HGB Conc 33 gm/dL (32-36); Mean Corpuscular Hemoglobin 29 pg (26-34); Mean Corpuscular Volume 88 fL (80-100); RDW Coefficient of Variation % 15.0 % (11.5-15.5); Red Blood Count* 3.64 m/uL (4.30-5.90); White Blood Count* 8.80 K/uL (4.50-11.00)
[2025-03-21 07:12] LABS: Slide Review Reflex No
[2025-03-21 07:23] LABS: Chloride* 93 mmol/L (96-114); Potassium* 3.0 mmol/L (3.6-5.1); Sodium* 135 mmol/L (135-149)
[2025-03-21 07:26] LABS: Blood Urea Nitrogen* 26 mg/dL (5-24); Creatinine* 0.9 mg/dL (0.5-1.5); Est. Creatinine Clearance* 115.65; Estimated Glomerular Filt Rate 115 ml/min
[2025-03-21 07:27] LABS: Anion Gap 12 mEq/L (7-15); Calcium* 8.3 mg/dL (8.4-10.6); Carbon Dioxide* 30 mmol/L (20-32); Glucose* 115 mg/dL (60-115)
[2025-03-21] MEDS: POTASSIUM CHLORIDE 10 MEQ CAPSULE ER 40 MEQ PO (08:04)
[2025-03-21] MEDS: LIDOCAINE 5% PATCH 1 PATCH TRANSDERMA (08:05)
[2025-03-21] MEDS: POTASSIUM CHLORIDE 10 MEQ/100 ML PIGGYBACK 100 MEQ IVPB ×4 (08:05→12:25)
[2025-03-21] MEDS: BACLOFEN 10 MG TABLET 20 MG PO ×3 (09:39→21:24)
[2025-03-21] MEDS: BUSPIRONE 10 MG TABLET PO ×3 (09:40→21:24)
[2025-03-21] MEDS: THIAMINE 100 MG TABLET PO (09:40)
[2025-03-21] MEDS: APIXABAN 5 MG TABLET 2.5 MG PO ×2 (09:40→21:23)
[2025-03-21] MEDS: SERTRALINE 100 MG TABLET PO (09:41)
[2025-03-21] MEDS: FUROSEMIDE 10 MG/ML inj 40 MG IVP (09:41)
[2025-03-21] MEDS: TOLTERODINE TARTRATE 2 MG CAP.ER.24H PO (09:43)
[2025-03-21] MEDS: PREGABALIN 100 MG CAPSULE 300 MG PO ×2 (09:43→21:22)
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
[2025-03-21] MEDS: DOCUSATE SODIUM/BENZOCAINE 5 ML ENEMA PR (13:00)
[2025-03-21] MEDS: levoFLOXacin 750 MG/150 ML 750 MG/150 ML PIGGYBACK 100 MG IVPB (14:40)
--- NOTE | 2025-03-21 19:30 | PC.NURSE ---
Nursing Care Hours: [id number] Pt this shift calm and cooperative. Joking with staff. Pain to posterior head, neck and R shoulder treated per eMAR and heating pad. PICC patent. Redness under dressing from adhesive noted, pt reports itching. Not spreading outside of dressing and not near IV cath. Bed bath given and hair washed. Pt required assistance with eating d/t bilat arm weakness. Attempted to use adaptive equipment but not effective. Pt getting frustrated and easily fatigued. Assisted up in chair for dinner and shortly after pt c/o ringing in the ear, blurry vision and lightheadedness. BP taken see results. Assisted back in bed and recheck BP x2 and improving. Home midodrine restarted for tomorrow. Dressing to back and bilat feet changed. XL BM after enema.
[2025-03-21] MEDS: SENNOSIDES 1 TAB TABLET 4 TAB PO (21:23)
[2025-03-21] MEDS: MELATONIN 3 MG TABLET PO (21:24)
[2025-03-22 02:32] VITALS: BP 120/82; PULSE 82; RESP 18; TEMP 36.5; O2SAT 90
[2025-03-22 06:16] LABS: Hematocrit* 33.2 % (37.0-53.0); Hemoglobin* 10.9 gm/dL (13.5-17.5); Mean Corpuscular HGB Conc 33 gm/dL (32-36); Mean Corpuscular Hemoglobin 29 pg (26-34); Mean Corpuscular Volume 89 fL (80-100); Red Blood Count* 3.73 m/uL (4.30-5.90); White Blood Count* 9.76 K/uL (4.50-11.00)
[2025-03-22 06:19] LABS: Slide Review Reflex No
[2025-03-22 06:29] LABS: Chloride* 98 mmol/L (96-114); Sodium* 137 mmol/L (135-149)
[2025-03-22 06:30] LABS: Potassium* 4.0 mmol/L (3.6-5.1)
[2025-03-22 06:32] LABS: Blood Urea Nitrogen* 21 mg/dL (5-24); Creatinine* 0.8 mg/dL (0.5-1.5); Est. Creatinine Clearance* 130.11; Estimated Glomerular Filt Rate 119 ml/min
[2025-03-22 06:33] LABS: Anion Gap 10 mEq/L (7-15); Calcium* 8.6 mg/dL (8.4-10.6); Carbon Dioxide* 29 mmol/L (20-32); Glucose* 100 mg/dL (60-115)
--- NOTE | 2025-03-22 07:34 | PC.NURSE ---
End of shift [id number]: Pt oriented to person, place, and occasional time. Pt cooperative and pleasant during shift. Pain reported during shift of the back, toothache, and mild headache. Production Line Assembler utilized PRN medication, reposition, and heated blankets. Pt reported relief. PICC patent. Kruse patent and drianing. Pt requiring assistance with eating/drinking. Dressing to back and bilat feet remain CDI. Call light within reach, bed alarm in place.
[2025-03-22 08:16] VITALS: BP 115/80; PULSE 88; RESP 16; TEMP 36.4; O2SAT 92
[2025-03-22] MEDS: MIDODRINE HCL 5 MG TABLET 2.5 MG PO ×2 (09:14→12:01)
[2025-03-22] MEDS: POTASSIUM CHLORIDE 10 MEQ CAPSULE ER 20 MEQ PO (09:15)
[2025-03-22] MEDS: APIXABAN 5 MG TABLET 2.5 MG PO (09:16)
[2025-03-22] MEDS: TOLTERODINE TARTRATE 2 MG CAP.ER.24H PO (09:17)
[2025-03-22] MEDS: THIAMINE 100 MG TABLET PO (09:17)
[2025-03-22] MEDS: SERTRALINE 100 MG TABLET PO (09:17)
[2025-03-22] MEDS: BACLOFEN 10 MG TABLET 20 MG PO (09:18)
[2025-03-22] MEDS: BUSPIRONE 10 MG TABLET PO (09:18)
[2025-03-22] MEDS: PREGABALIN 100 MG CAPSULE 300 MG PO (09:19)
[2025-03-22] MEDS: SODIUM CHLORIDE 0.9 % (FLUSH) 10 ML SYRINGE 5 ML IVF (09:19)
[2025-03-22 09:29] VITALS: O2SAT 98
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
[2025-03-22] MEDS: DOCUSATE SODIUM/BENZOCAINE 5 ML ENEMA PR (10:30)
[2025-03-22 11:19] VITALS: BP 90/51; PULSE 86; RESP 16; TEMP 36.2; O2SAT 92
--- NOTE | 2025-03-22 11:24 | PC.NURSE ---
Bowel care completed. Enemeez placed in rectum. Digital stimulation performed at the 15, 20, and 30min post enemeez administration. Moderate amount of stool and air was from rectum. PICC line was pulled at 11:10. Patient supine, pressure held for 5 min, applied sterile occlusive dressing and patient remained flat for 30 min. No signs of bleeding at this time. Patient instructed to leave dressing in place for [address] bandaid over site after 24 hours until hole is sealed up. Driver Material Handler brought in leg bag catheter to change and do teaching. Patient preferred to keep night bag on as it is too difficult for him to change back and forth. Explained to patient how to change it incase he changes his mind. Supplies sent home with patient. Prescription for mepilex sent to patients pharmacy.
[2025-03-22 11:56] VITALS: BP 98/67; PULSE 80
--- NOTE | 2025-03-22 13:01 | PC.NURSE ---
Patient discharged home via non-emergent EMS. Patient tolerating a regular diet, catheter in place and patent, bowel care completed, pain tolerated with PO pain medications, PICC was removed and catheter tip in place. Wound care was completed today. Prescription for [facility]pilex sent into [facility]. Patient stated family will assist with bowel care, transfers, catheter care, wound care. His only issue is transportation. Social work gave patient some resources on transportation in the area. Patient had no further questions and will follow up with his PCP.
== END 2025-03-22 13:00 | disposition home or self-care (01) | DRG 720 ==
LOC: ED 09:58 → MEDSURG 12:56
PROVIDERS: Family Medicine; Physician Assistant; Admitting Provider Family Medicine; Emergency Provider Family Medicine; PCP Student in an Organized Health Care Education/Training Program; Visit Provider Family Medicine
DX: A41.9 Sepsis, unspecified organism (principal); N10 Acute pyelonephritis; R65.20 Severe sepsis without septic shock; G82.50 Quadriplegia, unspecified; N17.9 Acute kidney failure, unspecified; I24.89 Other forms of acute ischemic heart disease; R09.02 Hypoxemia; R41.82 Altered mental status, unspecified; N31.9 Neuromuscular dysfunction of bladder, unspecified; F10.239 Alcohol dependence with withdrawal, unspecified; E87.6 Hypokalemia; R74.01 Elevation of levels of liver transaminase levels; B96.20 Unspecified Escherichia coli [E. coli] as the cause of diseases classified elsewhere; B95.2 Enterococcus as the cause of diseases classified elsewhere; B96.1 Klebsiella pneumoniae [K. pneumoniae] as the cause of diseases classified elsewhere; F11.90 Opioid use, unspecified, uncomplicated; F15.91 Other stimulant use, unspecified, in remission; K80.20 Calculus of gallbladder without cholecystitis without obstruction; S22.43XD Multiple fractures of ribs, bilateral, subsequent encounter for fracture with routine healing; F41.9 Anxiety disorder, unspecified; F32.1 Major depressive disorder, single episode, moderate; F43.10 Post-traumatic stress disorder, unspecified; Z79.01 Long term (current) use of anticoagulants; Z87.891 Personal history of nicotine dependence
CPT/HCPCS: 36415; 36573; 51701; 70450; 71045; 71275; 74176; 80048; 80053; 80076; 80143; 80179; 80306; 81001; 81003; 82077; 82140; 82803; 83605; 83735; 83880; 84100; 84145; 84484; 85025; 85027; 86140; 87040; 87086; 87186; 87631; 93005; 93306; 93971; 94761; 97110; 97162; 97166; 97535; 99285; 99291; 99292; A4221; A9270; C1751; J0696; J1171; J1630; J1650; J1938; J1953; J1956; J2003; J2060; J2185; J2270; J3411; J3480; J7030; J7050; J7120; Q9967

== ENCOUNTER 2025-03-22 12:52 | Outpatient (CLI) | payer MEDICAID, SELFPAY | END 2025-03-22 12:53 | disposition home or self-care (01) | LOC: AMB 03-26 11:51 | PROVIDERS: PCP Student in an Organized Health Care Education/Training Program; Visit Provider Family Medicine | DX: N10 Acute pyelonephritis (principal); A41.9 Sepsis, unspecified organism; R41.82 Altered mental status, unspecified | CPT/HCPCS: A0425; A0428 ==

== ENCOUNTER 2025-04-19 13:42 | Outpatient (CLI) | payer MEDICAID, SELFPAY | END 2025-04-19 13:43 | disposition home or self-care (01) | LOC: AMB 04-25 15:54 | PROVIDERS: PCP Student in an Organized Health Care Education/Training Program; Visit Provider Emergency Medicine | DX: R25.2 Cramp and spasm (principal); R31.9 Hematuria, unspecified | CPT/HCPCS: A0425; A0429 ==

== ENCOUNTER 2025-04-19 14:13 | Emergency (ER) | payer MEDICAID, SELFPAY ==
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
[2025-04-19 14:18] VITALS: BP 108/90; PULSE 97; RESP 16; TEMP 36.1; O2SAT 94; BMI 23.6
--- OUTSIDE RECORDS SUMMARY | 2025-04-19 14:24 | XMS_ITS | Encounter Summary ---
Author Organization [facility] Address [address] [place] [address] Care Team Providers Care Nursing Tech Name Role Phone Unavailable Primary Care Provider Unavailabl e Reason for Referral * Outpatient (Routine) - ClosedSpecialtyDiagnoses / ProceduresReferred By ContactReferred To ContactOrthopedic Surgery Diagnoses . Yessenia Ortiz P.A.-C. [address] [place] [phone] Phone: tel: fax: Ava Alvarez M.D. [address] [place] [phone] Phone: tel: fax: Referral IDStatusReasonStart DateExpiration DateVisits RequestedVisits [id number]/5/20255/ Scheduling Instructions Ashvin working on per email [employer] Encounter Details DateTypeDepartmentCare Team (Latest Contact Info)Whbialtvwyg83/05/2025Orders Only Department of Orthopedic Surgery in [place], [place] [address] [place] [phone] Yessenia Ortiz P.A.-C. [address] [place] [phone] Social History Tobacco UseTypesPacks/DayYears UsedDateSmoking Tobacco: Never AssessedSex and Gender InformationValueDate RecordedSex Assigned at FafveQbyz26/07/2025 3:53 PM CSTLegal NjzJrdy4805/25/2016 6:55 AM CSTGender RzpvnksdMlly57/07/2025 3:53 PM LEADITE HEATER Sexual NfwurlfkpoqQiwomdml24/07/2025 3:53 PM CSTdocumented as of this encounter Plan of Treatment DateTypeDepartmentCare Team (Latest Contact Info)Oztltnpaupv63/09/2026 8:15 AM CSTClinical Communication Virtual Review in [place], [place] [address] [place] [phone] 05/31/2025 10:00 AM CSTOffice Visit Department of Orthopedic Surgery in [place], [place] [address] [place] [phone] Ava Alvarez M.D. [address] [place] [phone] 05/31/2025 2:30 PM CSTAppointment Department of Neurology in [place], [place] [address] [place] [phone] Ava Alvarez M.D. [address] [place] [phone] Discharge Disposition: Home or Self CareNameTypePriorityAssociated Diagnoses Order ScheduleOrthopedic Surgery office visit (clinic)Outpatient ReferralRoutine Expected: 02/24/2025, Expires: 05/27/2026documented as of this encounter Visit Diagnoses Not on filedocumented in this encounter
--- OUTSIDE RECORDS SUMMARY | 2025-04-19 14:24 | XMS_ITS | Encounter Summary ---
Author Organization [facility] Address [address] [place] [address] Care Team Providers Care Ornamental Metalwork Designer Name Role Phone Unavailable Primary Care Provider Unavailabl e Reason for Referral * Outpatient (Routine) - AuthorizedSpecialtyDiagnoses / ProceduresReferred By ContactReferred To Contact Diagnoses Quadriplegia (HCC) Procedures EMG [place] EMG NDL NON-EXT W NRV CONDCT Ava Alvarez M.D. [address] [place] [address] Phone: tel: fax: [facility] Referral IDStatusReasonStart DateExpiration DateVisits RequestedVisits [id number]/12/20253/ AS CUTTER HAND * Outpatient (Routine) - AuthorizedSpecialtyDiagnoses / ProceduresReferred By ContactReferred To ContactOrthopedic Surgery Ava Alvarez M.D. [address] [place] [address] Phone: tel: fax: [facility] Referral IDStatusReasonStart DateExpiration DateVisits RequestedVisits [id number]/12/20256/13/202711 AS CUTTER HAND Encounter Details DateTypeDepartmentCare Team (Latest Contact Info)Uujilniuscr89/12/2025Orders Only Department of Orthopedic Surgery in [place], [place] [address] [place] [phone] Ava Alvarez M.D. [address] [place] [phone] Quadriplegia (HCC) (Primary Dx) Social History Tobacco UseTypesPacks/DayYears UsedDateSmoking Tobacco: Every DayCigarettes0.5 20.6Started: 2004Smokeless Tobacco: NeverAlcohol UseStandard Drinks/Week CommentsNot Currently0 (1 [...] RecordedIn the past 12 months has the electric, gas, oil, or water company threatened to shut off services in your home?No03/28/2025Housing StabilityAnswerDate RecordedWhat is your living situation today?I have a steady place to live03/28/2025Sex and Gender InformationValueDate RecordedSex Assigned at BszzyGjfo19/07/2025 3:53 PM CSTLegal WpsJyts8905/25/2016 6:55 AM CSTGender XmqbevbmQxeh23/07/2025 3:53 PM CSTSexual YlaseoiagsgMchwessi73/07/2025 3:53 PM CSTdocumented as of this encounter Plan of Treatment DateTypeDepartmentCare Team (Latest Contact Info)Blwacjjorpt68/09/2026 8:15 AM CSTClinical Communication Virtual Review in [place], [place] [address] [place] [phone] 05/31/2025 10:00 AM CSTOffice Visit Department of Orthopedic Surgery in [place], [place] [address] [place] [phone] Ava Alvarez M.D. [address] [place] [phone] 05/31/2025 2:30 PM CSTAppointment Department of Neurology in [place], [place] [address] [place] [phone] Ava Alvarez M.D. [address] [place] [phone] Discharge Disposition: Home or Self CareNameTypePriorityAssociated Diagnoses Order ScheduleEMGNeurologyRoutine Quadriplegia (HCC) Expected: 05/31/2025, Expires: 07/01/2026NameTypePriorityAssociated Diagnoses Order ScheduleOrthopedic Surgery office visit (clinic)Outpatient ReferralRoutine Expected: 05/31/2025, Expires: 07/01/2026documented as of this encounter Visit Diagnoses Diagnosis Quadriplegia (HCC)- Primary documented in this encounter
--- OUTSIDE RECORDS SUMMARY | 2025-04-19 14:24 | XMS_ITS | Clinical Summary ---
Author Organization [facility] Address [address] [place] [address] Care Team Providers Care Marine Structural Designer Name Role Phone Unavailable Primary Care Provider Unavailabl e Source Comments Patient records contain information from all sites at [facility]. For routine questions regarding patient records, call [phone] during business hours, M-F 8:00 AM - 5:00 PM Central Time. Record requests for emergency care only can be directed to [phone] at any time.[facility] Encounters * This document contains information received from the source organization and may not represent a complete record from that organization. DateTypeDepartmentCare HyfwDjnrdpzwltk00/12/2025Orders Only Department of Orthopedic Surgery in [place], [place] [address] [place] [phone] Ava Alvarez M.D. Quadriplegia (HCC) (Primary Dx)04/01/2025 4:30 PM CSTTelemedicine Department of Orthopedic Surgery in [place], [place] [address] [place] [address] Ava Alvarez M.D. Quadriplegia (HCC) (Primary Dx)02/24/2025Orders Only Department of Orthopedic Surgery in [place], [place] [address] [place] [phone] Yessenia Ortiz P.A.-C. from Last 3 Months Immunizations ImmunizationAdministration DatesNext EnbEHY8406/07/1991,03/30/1991,01/28/1991, 1990DTaP ([employer], [employer])02/04/1996HepB, Dxizeoeqkge62/27/2005 Influenza, Yddgsiwkxnz07/23/9084GOC5309/01/2001,02/04/1996,01/06/1992OPV, Tkqpzyvoo86/15/1996Td (Adult), qbmiiupg74/20/2003 Social History Tobacco UseTypesPacks/DayYears UsedDateSmoking Tobacco: Every [...] live03/28/2025Sex and Gender InformationValueDate RecordedSex Assigned at BhcrmLyfs81/07/2025 3:53 PM CSTLegal OuhQvhf8305/25/2016 6:55 AM CSTGender FtzotoohQfgj13/07/2025 3:53 PM CSTSexual XgqxyaisllsEbzecaaz41/07/2025 3:53 PM 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 [address] [place] [phone] 05/31/2025 2:30 PM CSTAppointment Department of Neurology in [place], [place] [address] [place] [phone] Ava Alvarez M.D. [address] [place] [phone] Discharge Disposition: Home or Self CareHealth MaintenanceDue DateLast Done CommentsHIV Ptglmfasl35/08/1991Hepatitis C Uidzkrvyh77/08/1991Tobacco Cessation czsqxoadqv88/08/1991Pneumococcal vaccine (0-49 years) (1 of 2 - PCV)2009 HPV Vaccines (1 - 3-dose SCDM series)2017Depression Screening (Annual PHQ-2)5COVID-19 Vaccine (2 - 2024- season)/04/2020 Influenza Vaccine (#1)501/06/2024, 05/21/2023, 06/09/2020, Additional history existsDTaP,Tdap,and Td Vaccines (7 - Td or Tdap), 09/08/2002, 02/04/1996, Additional history existsIPV VaccinesCompleted 02/04/1996, 04/06/1992, 03/30/1991, Additional history existsHepatitis B HikzefrhBnhewaqvy39/27/2005, 11/23/1994, 02/15/1993, [place] [address]
--- OUTSIDE RECORDS SUMMARY | 2025-04-19 14:25 | XMS_ITS | Clinical Summary ---
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 oz pure alcohol)PHQ-2AnswerDate RecordedPHQ-2 TOTAL [id number] ConnectionsAnswerDate RecordedDo you often feel lonely or isolated from those around you?Financial Resource StrainAnswerDate RecordedDifficulty of Paying Living Ufesqvpo195/10/2024ifficulty of Paying Living ExpensesNot on file 03/31/2024Food InsecurityAnswerDate RecordedDo you worry your food will run out before you are able to buy more?Transportation NeedsAnswerDate RecordedDoes lack of transportation keep you from medical appointments?1 04/01/2024oes lack of transportation keep you from work, meetings or getting things that you need?Housing StabilityAnswerDate RecordedWhat is your housing situation today?Interpersonal SafetyAnswerDate RecordedAre you being hit, kicked, pushed or yelled at (see row info)?No04/01/2024 Interpersonal Safety Abuse 12 - 18Not on file04/01/2024Interpersonal Safety Ambulatory VulnerabilityNot on file04/01/2024UtilitiesAnswerDate RecordedDo you have trouble paying for utilities (for example, heat, electricity, water, phone)?Sex and Gender InformationValueDate RecordedSex Assigned at BirthNot on fileLegal DzzCegr1405/05/2012 5:43 AM CSTGender IdentityNot on file Sexual OrientationNot on file Last Filed Vital Signs Vital SignReadingTime TakenCommentsBlood Skdxiykn154/6411 1:22 PM SHRIMP PACKER Vmwjt447203/11/2025 1:22 PM JRIOzufbdwvbcv41 ??C (96.8 ??F)09/17/2024 1:01 PM CDT Respiratory Ynjm708906/17/2023 8:24 PM CSTOxygen Sysiadnsww27%03/11/2025 1:22 PM CSTInhaled Oxygen Concentration--Ayjsou02.8 kg (165 lb)05/29/2024 1:01 PM SHRIMP PACKER Uscejd741.3 cm (5' 9)05/29/2024 1:01 PM CSTBody Mass Index24.37005/29/2024 1:01 PM SHRIMP PACKER Plan of Treatment DateTypeDepartmentCare Team (Latest Contact Info)Lpkkxdsliuj13/20/2026 11:45 AM CSTOffice Visit [facility] [place] [address] [place] [address] Ailyn Lindquist, [address] [place] [address] Health MaintenanceDue DateLast DoneCommentsPneumococcal series for age 6-49 (1 of 2 - PCV)2009HPV series for age 9-45 (1 - 3-dose SCDM series)2017 COVID-19 vaccine series (2 - 2024- season)/04/2020Influenza Vaccine (#1)/06/2024, 05/21/2023, 06/09/2020, Additional history existsTetanus afmovwg02, 09/08/2002, 09/08/2002BMI (ht and wt on same day) for age 18+/10/2024Depression screening for age 12+ Hepatitis B series for 19+Kqqsytqwz47/27/2005, 11/23/1994, 11/23/1994, Additional history existsHIV for age 15-64Gzoddjznt08/11/2024 (Verified in Care Everywhere or Patient Record)Overridden with the intention of not completing the topicHepatitis C screening for age 18-87Ibanqstsp38/14/2024 Procedures Procedure NamePriorityDate/TimeAssociated DiagnosisCommentsECHO TTE COMPLETE WO SRPBVPOJZkuhrjd41/28/2025 9:55 AM SHRIMP PACKER Elevated troponin SCAN CORRESP-EKG NOEEMMJ5703/01/2025 12:00 AM SHRIMP PACKER SCAN CORRESP-LABORATORY CBDVGVJ1903/01/2025 12:00 AM SHRIMP PACKER SCAN CORRESP-QXPJFHR9903/01/2025 12:00 AM SHRIMP PACKER ACUTE HEPATITIS JFJLMRELT77/14/2024 4:29 AM SHRIMP PACKER from Last 3 Months or Most Recently Relevant to Health Maintenance Results * ECHO TTE COMPLETE WO CONTRAST (03/19/2025 9:55 AM SHRIMP PACKER)ComponentValueRef Range Test MethodAnalysis TimePerformed AtPathologist SignatureAORTIC VALVE MEAN PG4 mmHgEJECTION MLVUBHBZ36%LVEDD5.6cmEJECTION RMBGJGDM28 - 60%Anatomical Region LateralityModalityUltrasoundSpecimen (Source)Anatomical Location / Laterality Collection Method / VolumeCollection TimeReceived Time03/19/2025 9:34 AM SHRIMP PACKER Narrative 03/19/2025 10:26 AM SHRIMP PACKER ECHOCARDIOGRAM REYNOLD DAVIS ?Accession#: ?? [id number] : ?1990 34 years Study Date: ?? 03/19/2025 9:34:35 AM Gender: M ? BP: ? 109/76 mmHg Height: 175.00 cm ? BSA: ?1.90 m? Weight: 75.00 kg ?Tech: ? NWA ?Referring MD: ROSAMARIA COWAN Site: [facility] Reading Location: [place]- Patient Location: Inpatient. Procedure: 2D, Color Doppler and Spectral Doppler. Indication for study: Elevated Trops Cardiac Rhythm: Sinus tachycardia.Study quality: Good. Imaging limitations: This study was subject to imaging limitations due to lack of cooperation. Final Impressions: 1. Normal left ventricular size, mildly increased wall thickness, normal global systolic function, calculated EF of 58 %. 2. Right ventricular cavity size is normal, global systolic RV function is normal. 3. Normal left atrium size. 4. The aortic valve is normal and trileaflet, no stenosis and no regurgitation. 5. The mitral valve is normal, no mitral regurgitation. 6. Tricuspid valve is normal, trace tricuspid regurgitation. 7. No pericardial effusion. Chamber Sizes and Function Normal left ventricular size, mildly increased wall thickness, normal global systolic function, calculated EF of 58 %. No resting regional wall motion abnormality visualized. Left atrial size is normal. Left atrial pressure is normal. Right ventricular cavity size is normal, global systolic RV function is normal. RV wall thickness is normal. The right atrium is normal. Right atrial volume index is 28 ml/m?. Right atrial area is 17 cm?. The pulmonary artery is of normal size and origin. The sinus of Valsalva is normal sized. The ascending aorta is normal sized. Valves, RV Pressures and Diastolic Function The aortic valve is normal in structure and trileaflet, no stenosis and no regurgitation. The mitral valve is normal in structure, no mitral regurgitation. Normal diastolic function. The tricuspid valve is normal in structure, trace tricuspid regurgitation. The pulmonic valve is normal. No pulmonary regurgitation. Masses, Effusion, Shunts There is no pericardial effusion. The inferior vena cava is normal sized, respiratory size variation greater than 50%. No left to right shunting was detected by limited color flow Doppler interrogation of the interatrial septum. MEASUREMENTS AND CALCULATIONS 2-D Measurements and LV Function: LVID (d) ? 5.6 cm ??Planimetered EF 58 % LVID (s) ? 3.4 cm ??LV FS% (2D) ? 39 % IVS (d) ?1.1 cm ??LVOT diameter ?? 2.3 cm LVPW (d) ? 1.1 cm ??HR ?106 bpm Ao Sinus ? 3.5 cm ??LA Vol index ?22 ml/m2 Ao Sinus ULN 3.8 cm ??RA Vol index ?28 ml/m2 Asc Ao ? 3.3 cm ??RA area ? 17 cm? Asc Ao ULN ?? 3.5 cm LA ? 3.8 cm Diastology: Mitral ?Tissue Doppler ?Pulmonary veins E Peak 1.0 m/s ??e', Septum ? 0.11 m/s Pulm s ?70.7 cm/s A Peak 0.6 m/s ??e', Lateral ?0.08 m/s Pulm d ?63.2 cm/s E/A ?1.7 ?E/e' Average ?? 10.52 ?Pulm s/d ratio ??1.12 DT ? 153 msec Aortic Valve: Vmax ? 1.3 m/s ??PATI (V) ?? 3.16 cm? VTI ?0.26 m ?? PATI (I) ?? 2.87 cm? LVOT V max 1.0 m/s ??Max PG ?7 mmHg LVOT VTI ?? 0.18 m ?? Mean PG ?? 4 mmHg SV ? 73 ml ?Dim Index 0.69 SV index ?? 38 ml/m? CO ?7.8 l/min ?CI ?4.1 l/min/m? Mitral Valve: MVA ?5.0 cm? MV P 1/2 44 msec Tricuspid Valve and estimated PA pressures: Pulmonic Valve: PV Vmax 1.2 m/s . This study was interpreted by an [facility] accredited facility. CC: [facility] (med records) [facility], Med/Surg - IP [facility]. ??Final ?? Procedure Note Erica Hood, [facility] - 03/19/2025 ECHOCARDIOGRAM REYNOLD DAVIS : 1990 34 years Study Date: 03/19/2025 9:34:35 AM Gender: M BP: 109/76 mmHg Height: 175.00 cm BSA: 1.90 m? Weight: 75.00 kg Tech: CLOTILDE Referring MD: ROSAMARIA COWAN Site: [facility] Reading Location: [place]- Patient Location: Inpatient. Procedure: 2D, Color Doppler and Spectral Doppler. Indication for study: Elevated Trops Cardiac Rhythm: Sinus tachycardia.Study quality: Good. Imaging limitations: This study was subject to imaging limitations due tolack of cooperation. Final Impressions: 1. Normal left ventricular size, mildly increased wall thickness, normalglobal systolic function, calculated EF of 58 %. 2. Right ventricular cavity size is normal, global systolic RV functionis normal. 3. Normal left atrium size. 4. The aortic valve is normal and trileaflet, no stenosis and noregurgitation. 5. The mitral valve is normal, no mitral regurgitation. 6. Tricuspid valve is normal, trace tricuspid regurgitation. 7. No pericardial effusion. Chamber Sizes and Function Normal left ventricular size, mildly increased wall thickness, normalglobal systolic function, calculated EF of 58 %. No resting regional wallmotion abnormality visualized. Left atrial size is normal. Left atrialpressure is normal. Right ventricular cavity size is normal, globalsystolic RV function is normal. RV wall thickness is normal. The rightatrium is normal. Right atrial volume index is 28 ml/m?. Right atrialarea is 17 cm?. The pulmonary artery is of normal size and origin. Thesinus of Valsalva is normal sized. The ascending aorta is normal sized. Valves, RV Pressures and Diastolic Function The aortic valve is normal in structure and trileaflet, no stenosis and no regurgitation. The mitral valve is normal in structure, no mitralregurgitation. Normal diastolic function. The tricuspid valve is normal instructure, trace tricuspid regurgitation. The pulmonic valve is normal. Nopulmonary regurgitation. Masses, Effusion, Shunts There is no pericardial effusion. The inferior vena cava is normal sized, respiratory size variation greater than 50%. No left to right shunting was detected by limited color flow Doppler interrogation of the interatrialseptum. MEASUREMENTS AND CALCULATIONS 2-D Measurements and LV Function: LVID (d) 5.6 cm Planimetered EF 58 % LVID (s) 3.4 cm LV FS% (2D) 39 % IVS (d) 1.1 cm LVOT diameter 2.3 cm LVPW (d) 1.1 cm HR 106 bpm Ao Sinus 3.5 cm LA Vol index 22 ml/m2 Ao Sinus ULN 3.8 cm RA Vol index 28 ml/m2 Asc Ao 3.3 cm RA area 17 cm? Asc Ao ULN 3.5 cm LA 3.8 cm Diastology: Mitral Tissue Doppler Pulmonary veins E Peak 1.0 m/s e', Septum 0.11 m/s Pulm s 70.7 cm/s A Peak 0.6 m/s e', Lateral 0.08 m/s Pulm d 63.2 cm/s E/A 1.7 E/e' Average 10.52 Pulm s/d ratio 1.12 DT 153 msec Aortic Valve: Vmax 1.3 m/s PATI (V) 3.16 cm? VTI 0.26 m PATI (I) 2.87 cm? LVOT V max 1.0 m/s Max PG 7 mmHg LVOT VTI 0.18 m Mean PG 4 mmHg SV 73 ml Dim Index 0.69 SV index 38 ml/m? CO 7.8 l/min CI 4.1 l/min/m? Mitral Valve: MVA 5.0 cm? MV P 1/2 44 msec Tricuspid Valve and estimated PA pressures: Pulmonic Valve: PV Vmax 1.2 m/s . This study was interpreted by an [facility] accredited facility. CC: [facility] (med records) [facility], Med/Surg - IP [facility]. Final Authorizing ProviderResult TypeResult StatusBerit Niraj Cowan MDECHCandice ORDFinal Result * SCAN CORRESP-LABORATORY RESULTS (03/01/2025 12:00 AM SHRIMP PACKER) Narrative Authorizing ProviderResult TypeResult StatusScannerOTHERFinal Result * SCAN CORRESP-EKG RESULTS (03/01/2025 12:00 AM SHRIMP PACKER) Narrative Authorizing ProviderResult TypeResult StatusScannerOTHERFinal Result * SCAN CORRESP-IMAGING (03/01/2025 12:00 AM SHRIMP PACKER)Anatomical RegionLaterality ModalityOther Narrative Authorizing ProviderResult TypeResult StatusScannerOTHERFinal Result * Acute hepatitis panel TODAY (03/05/2024 4:29 AM SHRIMP PACKER)ComponentValueRef Range Test MethodAnalysis TimePerformed AtPathologist SignatureHEPATITIS C ANTIBODY Bxf-DxmxdrrlHsa-Msarhhtj29/14/2024 1:41 PM CSTCHO[facility] LABORATORYComment:Please note, per www.CDC.gov: If a patient is known to be at high risk of HCV infection, or is symptomatic, and the physician's suspicion of HCV infection is high, HCV RNA testing is often employed and is of diagnostic value, even after an initial negative anti-HCV test result.IGM ANTI WVMWtu-MdhoxywpNeq-Bqksheaa83/14/2024 1:41 PM CSTCHOCTAW [facility]ENTER LABORATORYComment:Anti-HAV IgM non-reactive. Does not exclude the possibility of exposure to/or infection with HAV. Level of anti- HAV IgM may be below the cut-off in early infection.HBSAGNonreactive Zydzcbzebeh26/14/2024 1:41 PM [facility] IGM ANTI QADUyt-ZujwrdykIjw-Jotcjmmd58/14/2024 1:41 PM [facility]ORYComment:Anti-HBc IgM not detected. Does not exclude the possibility of exposure to or infection with HBV.Specimen (Source) Anatomical Location / LateralityCollection Method / VolumeCollection Time Received TimeBloodBLOOD SPECIMEN / UnknownVenipuncture / Qmpzmmq0203/05/2024 4:29 AM CST03/05/2024 4:46 AM SHRIMP PACKER Narrative [facility] - 03/05/2024 1:41 PM SHRIMP PACKER Biotin supplements may cause clinically significant interference for this test assay. If interference is suspected, it is strongly recommended that biotin is discontinued for at least one week prior to retesting. Authorizing ProviderResult TypeResult StatusNilesh Walls MDSEND OUTSFinal ResultPerforming OrganizationAddressCity/State/ZIP CodePhone Number [facility] [address] [place] [address], [place] from Last 3 Months or Most Recently Relevant to Health Maintenance Insurance Advance Directives * Full Code (Latest Code Status on File) Date ActivatedDate IgdxujfjuofTktlzbtg83/11/2024 12:42 PM04/17/2024 4:07 PM QuestionAnswerCommentsCode Status Discussion:* Reviewed Preferences * Full Code Date ActivatedDate UjrwfccheorYjmqoijh69/8/2024 2:47 AM04/01/2024 12:34 PM QuestionAnswerCommentsCode Status Discussion:* Reviewed Preferences * Full Code Date ActivatedDate ObxdikxtagiNkzxwexh78/8/2024 2:45 AM03/29/2024 2:47 AMQuestion AnswerCommentsCode Status Discussion:* Unable to Assess Preferences, Provider to review later * Full Code Date ActivatedDate UwevirovvoqIfqgwqdg09/12/2024 12:31 PM03/29/2024 2:36 AM QuestionAnswerCommentsCode Status Discussion:* Reviewed Preferences Care Teams Team MemberRelationshipSpecialtyStart DateEnd Date Carl Lopez MD [address] [place] [address] PCP - GeneralFamily Xelhiegw21/12/25 Clair Ferreira, LUÍS [address] [place] [address] [place] [address] Spinal Cord Injury Rehab Care Coordination - CKRIRegistered Nurse08/20/24
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
[2025-04-19 15:04] LABS: Appearance Urine Slightly Cloudy (Clear)
[2025-04-19 15:06] LABS: Lactate Sepsis w/Reflex* 1.5 mmol/L (0.5-1.9)
[2025-04-19 15:07] LABS: Hematocrit* 43.9 % (37.0-53.0); Hemoglobin* 14.5 gm/dL (13.5-17.5); Immature Granulocytes Abs Auto 0.01 K/uL (0.00-0.30); Immature Granulocytes Pct Auto 0.1 %; Lymphocytes Absolute Auto 2.41 K/uL (0.90-2.90); Mean Corpuscular HGB Conc 33 gm/dL (32-36); Mean Corpuscular Hemoglobin 29 pg (26-34); Mean Corpuscular Volume 89 fL (80-100); RDW Coefficient of Variation % 13.4 % (11.5-15.5); Red Blood Count* 4.95 m/uL (4.30-5.90); White Blood Count* 8.93 K/uL (4.50-11.00)
[2025-04-19 15:22] LABS: Chloride* 107 mmol/L (96-114); Potassium* 4.1 mmol/L (3.6-5.1); Sodium* 142 mmol/L (135-149)
[2025-04-19 15:25] LABS: Anion Gap 11 mEq/L (7-15); Blood Urea Nitrogen* 18 mg/dL (5-24); Calcium* 9.3 mg/dL (8.4-10.6); Carbon Dioxide* 24 mmol/L (20-32); Creatinine* 1.0 mg/dL (0.5-1.5); Est. Creatinine Clearance* 104.09; Estimated Glomerular Filt Rate 101 ml/min; Glucose* 102 mg/dL (60-115); Slide Review Reflex No
[2025-04-19 16:45] VITALS: BP 134/94; PULSE 80; RESP 18; TEMP 36.6; O2SAT 95
== END 2025-04-19 17:50 | disposition home or self-care (01) ==
PROVIDERS: Emergency Provider Emergency Medicine; PCP Student in an Organized Health Care Education/Training Program
DX: N39.0 Urinary tract infection, site not specified (principal); N31.9 Neuromuscular dysfunction of bladder, unspecified
CPT/HCPCS: 36415; 80048; 81001; 83605; 85025; 86140; 87040; 87086; 87186; 99283; 99284

== ENCOUNTER 2025-04-19 17:52 | Outpatient (CLI) | payer MEDICAID, SELFPAY | END 2025-04-19 17:53 | disposition home or self-care (01) | LOC: AMB 04-25 16:27 | PROVIDERS: PCP Student in an Organized Health Care Education/Training Program; Visit Provider Family Medicine | DX: N39.0 Urinary tract infection, site not specified (principal); N31.9 Neuromuscular dysfunction of bladder, unspecified; G82.50 Quadriplegia, unspecified | CPT/HCPCS: A0425; A0428 ==